=== PATIENT | female | born 1945 | race Caucasian/White ===

== ENCOUNTER → 2017-04-17 | Outpatient (CLI) | payer BC ==
--- NOTE | 2017-04-17 14:10 | MAMMOGRAPHY REPORT ---
BILATERAL DIGITAL SCREENING MAMMOGRAM WITH CAD: 04/17/2017 CLINICAL HISTORY: Routine screening. Patient has no complaints. TECHNIQUE: Bilateral CC and MLO views were obtained. Current study was also evaluated with a Comput er Aided Detection (CAD) system. COMPARISON: Comparison is made to exams dated: 03/30/2016 mammogram, 09/27/2015 ultrasound, 5 mammogram, 01/19/2014 mammogram, 01/15/2013 mammogram, and 01/14/2012 mammogram - [facility]. BREAST COMPOSITION: There are scattered areas of fibroglandular density in both breasts. FINDINGS: There are minimal vascular calcifications bilaterally. Stable asymmetry in the superior l eft breast. Scattered benign-appearing rim calcifications. No new suspicious mass, architectural d istortion or cluster of microcalcifications is seen. IMPRESSION: ACR BI-RADS CATEGORY 1: NEGATIVE There is no mammographic evidence of malignancy. A 1 year screening mammogram is recommended. The p atient will receive written notification of the results. Approximately 10% of breast cancers are not detected with mammography. A negative mammographic repor t should not delay biopsy if a clinically suggestive mass is present. Lakeshia Vasquez M.D. ay/:04/17/2017 13:40:59 [employer] Supervisor: Tamie BEAR(N[place])(M), [facility] letter sent: Normal 1/2 BI-RADS Code: ACR BI-RADS Category 1: Negative
== END | disposition home or self-care (01) ==
LOC: C.MAMM 10:40
PROVIDERS: ATTEND Family Medicine
DX: Z12.31 Encounter for screening mammogram for malignant neoplasm of breast (principal)

== ENCOUNTER → 2017-07-18 | Outpatient (CLI) | payer BC | END | disposition home or self-care (01) | LOC: C.LAB 12:38 | PROVIDERS: ATTEND Internal Medicine Endocrinology, Diabetes & Metabolism | DX: E03.9 Hypothyroidism, unspecified (principal) ==

== ENCOUNTER → 2017-09-23 | Outpatient (CLI) | payer BC ==
[2017-09-23 16:26] LABS: THYROID STIMULATING HORMONE 0.521 uIu/ml (0.300-4.500)
== END | disposition home or self-care (01) ==
LOC: C.LAB 13:51
PROVIDERS: ATTEND Internal Medicine Endocrinology, Diabetes & Metabolism
DX: E03.9 Hypothyroidism, unspecified (principal)

== ENCOUNTER → 2018-02-13 | Outpatient (CLI) | payer BC ==
--- NOTE | 2018-02-13 13:16 | DIAGNOSTIC IMAGING REPORT ---
L FOOT MIN 3 VIEWS CLINICAL HISTORY: LEFT FOOT PAIN COMPARISON: None. DISCUSSION: Rather prominent bunion distal aspect first metatarsal. Moderate valgus configuration of the great toe. Mild degenerative change of the metatarsal phalangeal as well as interphalangeal joints. No evidence for fracture or dislocation. There is no evidence for soft tissue swelling. IMPRESSION: Bunion deformity distal first metatarsal associated with a mild hallux valgus configuration. Moderate degenerative change of the interphalangeal as well as metatarsophalangeal joints. No evidence for fracture The above report was generated using voice recognition software. It may contain grammatical, syntax or spelling errors. Electronically signed by: Donn Shaikh M.D. 02/13/2018 1:15 PM Dictated Date/Time: 02/13/2018 1:14 PM
== END | disposition home or self-care (01) ==
LOC: C.RDSM 17:18
PROVIDERS: ATTEND Family Medicine
DX: M79.672 Pain in left foot (principal); M21.612 Bunion of left foot

== ENCOUNTER 2024-04-17 18:50 | Observation (INO) ==
[2024-04-17 19:34] LABS: Basophils # (auto) 0.04 K/uL (0.00-0.20); Basophils % (auto) 0.4 %; Eosinophils # (auto) 0.06 K/uL (0.00-0.50); Eosinophils % (auto) 0.7 %; Hematocrit (blood only) 44.3 % (37.0-47.0); Hemoglobin 15.1 g/dl (12.0-16.0); Immature Granulocytes # (auto) 0.02 K/uL (0.01-0.20); Immature Granulocytes % (auto) 0.2 %; Lymphocytes # (auto) 2.41 K/uL (1.20-3.40); Mean Corpuscular Hemoglobin 30.8 pg (25.0-34.0); Mean Corpuscular Hgb Conc 34.1 g/dL (32.0-36.0); Mean Corpuscular Volume 90.4 fL (80.0-100.0); Mean Platelet Volume 10.7 fL (9.4-12.4); Monocytes # (auto) 0.66 K/uL (0.11-0.59); Monocytes % (auto) 7.4 %; Neutrophils # (auto) 5.74 K/uL (1.40-6.50); Neutrophils % (auto) 64.3 %; Platelet Count 420 K/uL (130-400); RDW Coefficient of Variation 12.5 % (11.5-14.5); RDW Standard Deviation 40.7 fL (36.4-46.3); White Blood Count 8.93 K/ul (4.8-10.8)
[2024-04-17 19:35] LABS: Appearance Urine Clear (Clear); Bacteria Urine Automated None Seen (None Seen); Bilirubin Urine Negative (Negative); Blood Urine Negative (Negative); Cast Urine Automated 0-2 /lpf (0-2); Color Urine Yellow; Glucose Urine UA Negative (Negative); Ketones Urine Negative (Negative); Leukocyte Esterase Urine 3+ (Negative); Nitrite Urine Negative (Negative); Protein Urine Negative (Negative); RBC Urine Automated 0-2 /hpf (0-2); Specific Gravity Urine 1.008 (1.000-1.030); Urobilinogen Urine Negative (Negative); WBC Urine Automated 0-5 /hpf (0-5); pH Urine 8.5 (4.5-7.5)
[2024-04-17 19:51] LABS: Albumin Globulin Ratio 1.5 (0.9-2); Albumin Level 4.6 gm/dl (3.4-5.0); BUN Creatinine Ratio 16.9 (10-20); Bilirubin,Total 1.1 mg/dl (0.2-1.0); Calcium 10.3 mg/dl (8.6-10.3); Creatinine Clr Calc Pharmacy 41.9 ml/min; Est GFR (African American) 72.5 ml/min; Est GFR (Non-African American) 62.5 ml/min; Magnesium 2.2 mg/dl (1.7-2.4); Potassium 3.9 mmol/L (3.5-5.1); Total Protein 7.6 gm/dl (6.0-8.3)
[2024-04-17 20:01] LABS: Partial Thromboplastin Time 27 Seconds (21-31); Prothrombin Time 10.9 Seconds (9.0-12.0)
[2024-04-17 20:07] LABS: Thyroid Stimulating Hormone 1.061 uIu/ml (0.300-4.500)
--- NOTE | 2024-04-17 20:51 | CT Scan Report ---
Exam(s): CT HEAD Without Contrast CT head: No acute intracranial hemorrhage. No midline shift or mass effect. The territorial velarde-white matter differentiation is maintained throughout. Age-related cerebral volume loss. Periventricular and subcortical white matter hypoattenuation, consistent with chronic microangiopathy. Electronically signed by: Shankar Barber MD 04/17/24 20:50 PM
--- NOTE | 2024-04-17 21:17 | Emergency Department Note ---
Impression & Plan Confusion, Dementia, Wandering, Amnesia ED Provider Note NAME: CONSTANTIN PHELPS AGE: 79 SEX: F : 1945 ARRIVES VIA: Walk-In INFORMANT: [Patient][friends] ED PROVIDER(S): [Familia Saeed MD] CHIEF COMPLAINT: Confusion HISTORY OF PRESENT ILLNESS: The patient is a 79-year-old female who is here with family friends. They are concerned about her safety at home. The patient's has dementia and Parkinson's. The patient was found a few days ago wandering. She apparently had become lost. Today, she was found wandering down the center of the road. People saw her petting animals that were not there. She has made comments that there are people in the house that she has not invited. The family/friends are concerned that the patient may be hallucinating. They have noticed increased confusion. Patient denies pain, she does not want to be hospitalized. She does think that she is safe at home taking care of her . There has been no fever, no cough or congestion. No urinary complaints. She does not think she fell today although she is amnestic about a lot of today's events. PMHx/PSHx/Social Hx: See Below PHYSICAL EXAM: GENERAL: Patient is in no acute distress. HEENT: No acute trauma, normocephalic atraumatic, mucous membranes moist, no nasal congestion. NECK: No stridor, no adenopathy, no meningismus, trachea is midline. LUNGS: Clear to auscultation bilaterally, no wheeze, no rhonchi, breath sounds equal. HEART: Without murmurs gallops or rubs, regular rate and rhythm. ABDOMEN: Soft, nontender, no peritonitis. EXTREMITIES: No cyanosis, full range of motion of all the joints without pain or difficulty. NEUROLOGIC: Awake and alert, follows commands, no acute motor or sensory deficits, no focal weakness. SKIN: No jaundice, no diaphoresis. DIFFERENTIAL DIAGNOSIS: Dementia, UTI, dehydration, electrolyte imbalance, intracranial bleeding, liver or renal failure, among others. EMERGENCY DEPARTMENT PROCEDURES: MEDICAL DECISION MAKING: There is no leukocytosis or concerning anemia. The platelet count is slightly elevated. No coagulopathy. No renal failure or significant electrolyte abnormality. There were some subtle liver enzyme elevations. The patient appeared to be in a euthyroid state. ECG shows a normal sinus rhythm, no acute ST elevation. Cardiac enzyme testing x 1 is not consistent with acute cardiac injury. Urinalysis does not show infection. Brain CT shows no acute bleed or mass effect. Chest x-ray does not show mediastinal widening, pneumonia or pneumothorax. On exam, the patient was amnestic of what had happened earlier. She had a hard time explaining exactly what had happened to her today. Patient was brought by family/friends as they were concerned about her ability to be at home. There was concern for her safety at home. They were asking for admission/placement. The patient did not want to stay voluntarily for help. The office of aging was contacted by case management. Patient is going to be admitted to the hospital for potential placement based on her inability to care for herself. There are serious safety concerns at the present. As per those interviewed, her house is in some disarray and there is true worry about her increased confusion and wandering behavior. The patient was ordered for sublingual Ativan for some anxiety. She will be hospitalized with the help of the office of aging. Case management has been involved. The on-call hospitalist was consulted. At this point, no medical reason for her worsening confusion was found, this may be confusion and wandering as result of worsening dementia. Prior/Outside records/notes reviewed: None ECG per my interpretation: Indication was confusion. The ECG shows a normal sinus rhythm with a rate of 80. There is no acute ST elevation. There is a possible old anterior infarct. There is no PVC. QTc is 431. Imaging/x-ray results per my interpretation: Chest x-ray does not show mediastinal widening, pneumonia or pneumothorax. Chronic Medical/Social conditions affecting care: Advanced age. History of dementia. Care/Management discussed with: preschool disability teacher here in the ED. The on-call hospitalist. Level of care consideration(s): After review of the information above and other included data: --I believe the patient requires escalation of care to admission DISPOSITION: Admission with potential placement. Past Med/Surg History Problem List (Updated 04/18/24 @ 01:22 by Familia Saeed MD) Amnesia (Acute) Wandering (Acute) Dementia (Acute) Confusion (Acute) Hypothyroidism Medical History Dementia Lynne's thyroiditis Goiter Social History Smoking Status: Never smoker Preferred Language: Portuguese Feels Safe at Home: Yes Allergies Allergies Allergy/AdvReac Type Severity Reaction Status Date / Time No Known Allergies Allergy Verified 04/17/24 23:56 Home Meds Home Medications Medication Instructions Recorded Confirmed brinzolamide 1 %-brimonidine 0.2 % 1 drp ophthalmic (eye) DIRECTED 04/17/24 04/17/24 eye drops,suspension (Simbrinza) loteprednol etabonate 0.5 % eye 1 drp OPL DIRECTED 04/17/24 04/17/24 drops,suspension (Lotemax) netarsudil 0.02 % eye drops 1 drp ophthalmic (eye) DIRECTED 04/17/24 04/17/24 (Rhopressa) timolol maleate 0.5 % eye drops 1 drp OPB .DAILY@1000 04/17/24 04/17/24 Previous Rx's Medication Instructions Recorded liothyronine 5 mcg tablet 5 mcg PO BID #180 tabs 06/07/23 levothyroxine 75 mcg tablet 75 mcg PO DAILY #90 tabs 03/30/24 Results & Data (ED) Vital Signs Vital Signs - 24 hr 04/17/24 19:02 04/17/24 20:46 04/17/24 23:01 Temperature 36.4 C L Temperature Source Temporal Artery Scan Pulse Rate 81 Pulse Rate [Finger] 80 82 Respiratory Rate 16 17 18 Respiratory Effort / Characteristics Non-Labored Spontaneous Non-Labored Spontaneous Respiratory Depth Normal Normal Respiratory Pattern Regular Blood Pressure 194/99 H Blood Pressure [Right Arm] 187/95 H 175/99 H Blood Pressure Mean 130 Blood Pressure Mean [Right Arm] 125 124 Pulse Oximetry 97 97 96 Oxygen Delivery Method Room Air Room Air Room Air Sepsis Recent Fever Within 48 Hours No Sepsis New/Unexplained Change in Mental Status No Sepsis Action Taken by Nursing No Action Required 04/18/24 00:00 Temperature Temperature Source Pulse Rate Pulse Rate [Finger] Respiratory Rate Respiratory Effort / Characteristics Respiratory Depth Respiratory Pattern Blood Pressure Blood Pressure [Right Arm] Blood Pressure Mean Blood Pressure Mean [Right Arm] Pulse Oximetry 96 Oxygen Delivery Method Room Air Sepsis Recent Fever Within 48 Hours Sepsis New/Unexplained Change in Mental Status Sepsis Action Taken by Assisted Medications Current Medication List: was personally reviewed by me Laboratory Data Attestation: I reviewed the patient's lab results. 04/17/24 19:15 04/17/24 19:15 Lab Results 04/17/24 Range/Units 19:15 WBC 8.93 (4.8-10.8) K/ul RBC 4.90 (4.20-5.40) M/uL Hgb 15.1 (12.0-16.0) g/dl Hct 44.3 (37.0-47.0) % MCV 90.4 (80.0-100.0) fL MCH 30.8 (25.0-34.0) pg MCHC 34.1 (32.0-36.0) g/dL RDW Std Deviation 40.7 (36.4-46.3) fL RDW Coeff of Ronald 12.5 (11.5-14.5) % Plt Count 420 H (130-400) K/uL MPV 10.7 (9.4-12.4) fL Immature Gran % (Auto) 0.2 % Neut % (Auto) 64.3 % Lymph % (Auto) 27.0 % [place] % (Auto) 7.4 % Eos % (Auto) 0.7 % Baso % (Auto) 0.4 % Neut # (Auto) 5.74 (1.40-6.50) K/uL Lymph # (Auto) 2.41 (1.20-3.40) K/uL [place] # (Auto) 0.66 H (0.11-0.59) K/uL Eos # (Auto) 0.06 (0.00-0.50) K/uL Baso # (Auto) 0.04 (0.00-0.20) K/uL Immature Gran # (Auto) 0.02 (0.01-0.20) K/uL PT 10.9 (9.0-12.0) Seconds INR 1.0 (0.9-1.1) APTT 27 (21-31) Seconds PTT Ratio 1.0 Sodium 140 (136-145) mmol/L Potassium 3.9 (3.5-5.1) mmol/L Chloride 104 (98-107) mmol/L Carbon Dioxide 30 (21-32) mmol/L Anion Gap 6 (3-11) BUN 15 (6-23) mg/dl Creatinine 0.89 (0.6-1.2) mg/dl Est Cr Clr Drug Dosing 41.9 ml/min Est GFR ( Amer) 72.5 ml/min Est GFR (Non-Af Amer) 62.5 ml/min BUN/Creatinine Ratio 16.9 (10-20) Glucose 108 H (70-99(Fasting)) mg/dl Calcium 10.3 (8.6-10.3) mg/dl Magnesium 2.2 (1.7-2.4) mg/dl Total Bilirubin 1.1 H (0.2-1.0) mg/dl AST 57 H (13-39) U/L ALT 46 (7-52) U/L Alkaline Phosphatase 77 (34-104) U/L Troponin I High Sens 6.0 (0-14) pg/ml Total Protein 7.6 (6.0-8.3) gm/dl Albumin 4.6 (3.4-5.0) gm/dl Globulin 3.0 (2.5-4.0) gm/dl Albumin/Globulin Ratio 1.5 (0.9-2) TSH 1.061 (0.300-4.500) uIu/ml Urine Color Yellow Urine Appearance Clear (Clear) Urine pH 8.5 H (4.5-7.5) Ur Specific [place] 1.008 (1.000-1.030) Urine Protein Negative (Negative) Urine Glucose (UA) Negative (Negative) Urine Ketones Negative (Negative) Urine Blood Negative (Negative) Urine Nitrite Negative (Negative) Urine Bilirubin Negative (Negative) Urine Urobilinogen Negative (Negative) Ur Leukocyte Esterase 3+ H (Negative) Urine WBC (Auto) 0-5 (0-5) /hpf Urine RBC (Auto) 0-2 (0-2) /hpf U Hyaline Cast (Auto) 0-2 (0-2) /lpf U Epithel Cells (Auto) 3-5 H (0-2) /hpf Urine Bacteria (Auto) None Seen (None Seen) Imaging Data Radiologist's Impression: Head CT 04/17/24 19:23 Exam(s): CT HEAD Without Contrast CT head: No acute intracranial hemorrhage. No midline shift or mass effect. The territorial velarde-white matter differentiation is maintained throughout. Age-related cerebral volume loss. Periventricular and subcortical white matter hypoattenuation, consistent with chronic microangiopathy. Electronically signed by: Shankar Barber MD 04/17/24 20:50 PM Discharge Plan Visit Data Chief Complaint: Confusion Stated Complaint: CONFUSION, WONDERING, DEMENTIA, DIZZY, FELL ED Provider: Familia Saeed Discharge Problem: Confusion, Dementia, Wandering, Amnesia Patient Disposition: Admitted As Inpatient Condition: Fair Forms Stand Alone Forms: My [facility] Prescriptions Prescriptions: No Action liothyronine 5 mcg tablet 5 mcg PO BID Qty: 180 3RF levothyroxine 75 mcg tablet 75 mcg PO DAILY Qty: 90 1RF loteprednol etabonate [Lotemax] 0.5 % drops,suspension 1 drp OPL DIRECTED timolol maleate 0.5 % drops 1 drp OPB .DAILY@1000 Simbrinza 1-0.2 % drops,suspension 1 drp ophthalmic (eye) DIRECTED Rhopressa 0.02 % drops 1 drp ophthalmic (eye) DIRECTED Referrals Referrals: Mario Rodrigez MD [Primary Care Provider] - Discharge Problem: Dementia Qualifiers: Dementia type: unspecified type Dementia severity: moderate Dementia behavioral or psychological symptom: unspecified whether behavioral, psychotic, or mood disturbance or anxiety Qualified Code(s): F03.B0 - Unspecified dementia, moderate, without behavioral disturbance, psychotic disturbance, mood disturbance, and anxiety
[2024-04-18] MEDS: LORazepam 1 MG TAB SL STA (01:27)
--- NOTE | 2024-04-18 02:13 | History & Physical Report ---
Date of Service April 18, 2024 Assessment & Plan (1) Dementia: Plan: - No acute pathology on Head CT - metabolic encephalopathy in the setting in UTI may be contributing, but does not sound like mental status is acutely worse - UDS pending - office of aging involved as concern for safety at home and ability to independently perform ADLs; office of aging will see pt 04/18. Court order was obtained for 72 hour protection (2) Confusion: Plan: As per above (3) Requires assistance with activities of daily living (ADL): Plan: As per above (4) Hypothyroidism: Plan: - continue levothyroxine, liothyronine - TSH= 1.061 - follows with endocrinology (5) UTI (urinary tract infection): Plan: - UA with - memory is poor, so trouble assesing if she is truely symtomtic - plan to start on Bactrim pending culture (6) Glaucoma: Plan: - per friend recent surgery and had appointment 04/17 where timing of eye drops were changed - continue eye drops per [facility] records from 04/02-> should call [facility] in the morning to confirm what changes were made Plan Diet: Regular VTE Prophylaxis: Lovenox Code: Full History of Present Illness Primary Care Provider: Mario Rodrigez MD 79 year old female with a past medical history of dementia, glaucoma, hypothyroidism presenting with concern for altered mental status. This evening she was found by a neighbor walking in the street. Patient's friend, Priya, helps to provide history. Notes slow onset of dementia over the past few years. Got significantly worse over the past year, after her daughter in February 2023. has Parkinson's disease. Friends/Family has concerns that she is no longer safe to be at home. Has been hallucinating and has wandered out of the house and gotten lost twice this week. Per Priya there has not been an acute change in mental status, just gradual decline. Allergies Allergy/AdvReac Type Severity Reaction Status Date / Time No Known Allergies Allergy Verified 04/17/24 23:56 Home Medications Medication Instructions Recorded Confirmed Type liothyronine 5 mcg tablet 5 mcg PO BID #180 tabs 06/07/23 04/17/24 Rx levothyroxine 75 mcg tablet 75 mcg PO DAILY #90 tabs 03/30/24 04/17/24 Rx brinzolamide 1 %-brimonidine 0.2 % 1 drp ophthalmic (eye) DIRECTED 04/17/24 04/17/24 History eye drops,suspension (Simbrinza) loteprednol etabonate 0.5 % eye 1 drp OPL DIRECTED 04/17/24 04/17/24 History drops,suspension (Lotemax) netarsudil 0.02 % eye drops 1 drp ophthalmic (eye) DIRECTED 04/17/24 04/17/24 History (Rhopressa) timolol maleate 0.5 % eye drops 1 drp OPB .DAILY@1000 04/17/24 04/17/24 History Past Med/Surg History Problem List (Updated 04/18/24 @ 02:24 by Dania Naqvi DO) Glaucoma UTI (urinary tract infection) Requires assistance with activities of daily living (ADL) Amnesia (Acute) Wandering (Acute) Dementia (Acute) Confusion (Acute) Hypothyroidism Medical History Dementia Lynne's thyroiditis Goiter Social History Smoking Status: Never smoker Preferred Language: Pashto Communication Ability: Effective Agile Java 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 Required: No Current Living Situation: Spouse Feels Safe at Home: Yes Assistive Devices: None Assistive Devices Comment: reading glasses Review of Systems Review of Systems: As per above Physical Exam Physical Exam: Constitutional: well-appearing, no acute distress HEENT: NCAT, no conjunctival injection CV: regular rhythm, no murmur appreciated, extremities well-perfused, no LE edema Resp: CTABL, no wheezes/rales/rhonchi appreciated, no increased work of breathing MSK: no gross deformities appreciated Skin: warm, dry, no rash appreciated Neuro: alert, oriented to person and place, no focal neurologic deficit appreci ated Results & Data Results & Data Vital Signs (Past 12 Hours) Vital Signs Temp Pulse Pulse Resp BP BP Pulse Ox 04/18/24 00:00 96 04/17/24 23:01 82 18 175/99 H 96 04/17/24 20:46 80 17 187/95 H 97 04/17/24 19:02 36.4 C L 81 16 194/99 H 97 O2 Del Method 04/18/24 00:00 Room Air 04/17/24 23:01 Room Air 04/17/24 20:46 Room Air 04/17/24 19:02 Room Air Supervising Physician Co-Signing Physician Notes Attending addendum: I have physically seen this patient, have supervised the medical residents activities, and agree with the H&P unless as otherwise noted. Assessment and Plan: Confusion- Underlying dementia, with possible aggravation due to metabolic encephalopathy associated with a present UTI Office of Aging with 72-hour admission due to behavior noted earlier this evening regarding patient's safety Unclear how much of the process may be related to progressive dementia, may not know until UTI is completely treated Maintain one-to-one for now Will need PT/OT assessment Patient presently in need of help with ADLs Urinary tract infection- UA suggestive of UTI Follow urine culture sensitivity Empiric oral Bactrim, as patient has pulled out her IV and would not except another IV to be placed Glaucoma- Exact timing and frequency of drops to be determined in the a.m. Resident Activity Tracking Resident Involvement: Resident Care Provided Care Provided: Adult Hospital Medicine (1) Dementia Dementia behavioral or psychological symptom: unspecified whether behavioral, psychotic, or mood disturbance or anxiety Dementia severity: moderate Dementia type: unspecified type Qualified Code(s): F03.B0 - Unspecified dementia, moderate, without behavioral disturbance, psychotic disturbance, mood disturbance, and anxiety
[2024-04-18 03:06] LABS: Amphetamines+Metham, Urine Neg (Neg); Barbiturates, Urine Neg (Neg); Benzodiazepine, Urine Neg (Neg); Cocaine, Urine Neg (Neg); Fentanyl, Urine Neg (Neg); MDMA (Ecstacy), Urine Neg (Neg); Marijuana, Urine Neg (Neg); Methadone, Urine Neg (Neg); Opiate, Urine Neg (Neg); Phencyclidine, Urine Neg (Neg)
[2024-04-18] MEDS: LEVOTHYROXINE SODIUM 75 MCG TABLET PO SCH (06:31)
--- NOTE | 2024-04-18 06:58 | Hospitalist Progress Note ---
Date of Service April 18, 2024 Assessment & Plan (1) Dementia: Plan: - Patient found wondering outside on road prior to coming in. - No acute pathology on Head CT - metabolic encephalopathy in the setting in UTI may be contributing, but does not sound like mental status is acutely worse - Otherwise blood work unremarkable. - UDS negative. - office of aging involved as concern for safety at home and ability to independently perform ADLs; office of aging will see pt 04/18. Court order was obtained for 72 hour protection (2) Confusion: Plan: As per above (3) Requires assistance with activities of daily living (ADL): Plan: As per above (4) Hypothyroidism: Plan: - continue levothyroxine, liothyronine - TSH= 1.061 - follows with endocrinology (5) UTI (urinary tract infection): Plan: - UA with - memory is poor, so trouble assesing if she is truely symtomtic - plan to start on Bactrim pending culture (6) Glaucoma: Plan: - Per [facility], patient is currently on Timolol eye drops BID, Lotemax TID, Rhopressa daily, and Simbrinza QID. - Only available formulations of the above are Timolol and Simbrinza, however spoke to patient's friend, Priya who is involved in care and she will be bringing some clothes as well as her eye drop prescriptions over today. Plan Diet: Regular VTE Prophylaxis: Lovenox 40mg Code: Full Dispo: Case management discussed with patient's (who is unable to care for her as well now due to Parkinson's) and friend Priya - referral was faxed to [facility] and after I spoke with friend Priya they will have a meeting with [facility] on Saturday. Admission and Anticipated Discharge Date Admission Date: April 18, 2024 Supervising Physician Co-Signing Physician Notes Attending Physician Supervision Note: I independently interviewed and examined the patient and verified the anderson history and physical, reviewed labs and image studies and agree with findings and care plan noted above. Confusion in setting of dementia needing help with ADL - probable UTI - bactrim. supportive care. office of aging involvement for safety. Recent glaucoma surgery - continue home eye drops Subjective Patient seen at the bedside without any physical complaint. She states that she was told she would be talking to people who would help her with her situation at home with having to deal with a lot of things. Review of Systems Review of Systems: As per above Physical Exam Constitutional: WD/WN, vitals as above Eyes: PERRL, conjunctivae normal, anicteric sclerae Respiratory: normal respiratory effort, lungs clear to auscultation Cardiovascular: RRR, no murmur, no edema Gastrointestinal (Abdomen): normal bowel sounds, soft, nontender, no hepatosplenomegaly Psychiatric: Patient oriented to name, stated she was "probably at [facility]" when asked, and knows it's spring. Results & Data Results & Data Vital Signs (Past 12 Hours) Vital Signs Temp Pulse Pulse Resp BP BP Pulse Ox 04/18/24 04:28 36.3 C L 77 16 145/89 H 97 04/18/24 03:19 76 16 96 04/18/24 02:33 78 16 96 04/18/24 02:31 78 16 96 04/18/24 00:00 96 04/17/24 23:01 82 18 175/99 H 96 04/17/24 20:46 80 17 187/95 H 97 04/17/24 19:02 36.4 C L 81 16 194/99 H 97 O2 Del Method 04/18/24 04:28 Room Air 04/18/24 03:19 Room Air 04/18/24 02:33 Room Air 04/18/24 02:31 Room Air 04/18/24 00:00 Room Air 04/17/24 23:01 Room Air 04/17/24 20:46 Room Air 04/17/24 19:02 Room Air Resident Activity Tracking Resident Involvement: Resident Care Provided Care Provided: Adult Hospital Medicine (1) Dementia Dementia behavioral or psychological symptom: unspecified whether behavioral, psychotic, or mood disturbance or anxiety Dementia severity: moderate Dementia type: unspecified type Qualified Code(s): F03.B0 - Unspecified dementia, moderate, without behavioral disturbance, psychotic disturbance, mood disturbance, and anxiety
[2024-04-18] MEDS: LOTEMAX~ORDER AWAITING ACTION SCH (07:16)
--- NOTE | 2024-04-18 08:12 | XRay Report ---
XR chest 1V not portable HISTORY: Weakness COMPARISON: None. FINDINGS: The lungs are clear. Cardiac silhouette is normal in size. No pleural effusions. No pneumot horax. IMPRESSION: No acute process. ACT 112: Negative or not required by law. Electronically signed by: Bradley Yun M.D. 04/18/2024 8:10 AM
[2024-04-18] MEDS: SULFAMETHOXAZOLE/TRIMETHOPRIM DS 800/160MG TAB PO SCH (08:37)
[2024-04-18] MEDS: LIOTHYRONINE SODIUM 5 MCG TAB PO SCH (08:37)
[2024-04-18] MEDS: TIMOLOL MALEATE 0.5% OP SOLN 5 ML BTL OP SCH (08:37)
[2024-04-18] MEDS: ENOXAPARIN INJ 40 MG/0.4 ML SYR SQ SCH (12:10)
[2024-04-18] MEDS: BRINZOLAMIDE (AZOPT) OPS 10 ML BTL OP SCH (13:08)
[2024-04-18] MEDS: BRIMONIDINE TARTRATE 0.2% 5ML OP SCH (13:08)
[2024-04-18] MEDS: LORazepam 0.5 MG TAB PO STA (15:31)
[2024-04-18] MEDS ORDERED: Nursing to Pharmacy Communication SCH (17:00)
[2024-04-18] MEDS: NETARSUDIL MESYLATE 37 DROPS/2.5 ML BTL OPR SCH (19:35)
[2024-04-18] MEDS: prednisoLONE acetate 1% OP SUSP 5 ML BTL OPL SCH (19:35)
--- NOTE | 2024-04-18 19:44 | Billing Data ---
Date of Service April 18, 2024 Coding Level of Care Code 94699 INT INP/OBS CARE
[2024-04-18] MEDS ORDERED: prednisoLONE acetate 1% OP SUSP 5 ML BTL OPL SCH (20:00)
--- OUTSIDE RECORDS SUMMARY | 2024-04-18 20:01 | External Medical Summary | Continuity of Care Document ---
Author Name Unknown Organization [facility] [id number] [place] [phone] Care Team Providers Care Waxer Floor Name Role Phone RainClover stantonan Primary Care Physician [phone] Encounter [facility] [id number] Date(s): 04/01/24 - 04/01/24 [facility] [address] Medical [facility] [address] [address] [place] [phone] Encounter Diagnosis Severe dementia(Discharge Diagnosis) - 04/01/24 Glaucoma(Discharge Diagnosis) - 04/01/24 Hyperlipemia(Discharge Diagnosis) - 04/01/24 Pre-op exam(Discharge Diagnosis) - 04/01/24 Body mass index [BMI] 22.0-22.9, adult(Discharge Diagnosis) - 04/01/24 UNSPECIFIED HYPOTHYROIDISM(Discharge Diagnosis) - 04/01/24 Thrombocytosis(Discharge Diagnosis) - 04/01/24 Discharge Disposition: Home or Self Care Attending Physician: DO Oliva Allison B Allergies, Adverse Reactions, Alerts Substance Criticality Severity Reaction Reaction Severity Status sulfADIAZINE rash Active Fosamax 1 Active 1stomach upset Assessment and Plan Extracted from: Title:Office Visit Note Author:Osbaldo Garza MD, [facility] Date:04/01/24 1.Severe dementia Controlled Live with 2.Glaucoma 3.Hyperlipemia Chronic condition, stable Goal:_ Data:_ _ Plan: _Lipid panel ordered Follow up in 1 month 4.Pre-op exam Mercedes is seen for uche-operative risk stratification. They report no cardiac symptoms at rest or on exertion. They have no history of ischemic heart disease, CHF, CVD, diabetes, EtOH/drug abuse, recent anticoagulant or antithrombotic use, personal or family history of coagulopathy, or CKD. They report no history of undergoing a stress test, cardiac catheterization, or coronary revascularization) They report being able to achieve4-10METs of activity during. According to the RCRI, this number of risk factors stratifies the patient to ClassI, whihc carries with it a0.4% risk of major CV complications, such as TX, CHF, or malignant arrhythmia (Circulation 1999; 100:1043). In this case, however, the RCRI likelyover-estimatesthe patient's true cardiac risk and due to the fact that this surgery is considered alowrisk. These risks, along with the risk of uche- operative stroke, were discussed with the patient, in light of the benefits of possible surgerySarha to proceed with the operation. This assessment was conveyed to the surgery and anesthesia teams. 5.UNSPECIFIED HYPOTHYROIDISM Chronic condition, stable Goal:Resolution Data:_ _ Plan: _She follow upwith Garbage Collector Supervisor 6.Thrombocytosis Chronic condition, stable Goal:_ Data:_ _ Plan: _ Lab will be reordered Stable for surgery Immunizations Given and Recorded Vaccine Date Status Refusal Reason RSV vaccine preF3, recombinant 10/21/23 Recorded zoster vaccine, inactivated 08/20/22 Recorded zoster vaccine, inactivated 1 06/28/22 Recorded zoster vaccine, inactivated 06/18/22 Recorded SARS-CoV-2 (COVID-19) mRNA BNT-162b2 vax 09/20/21 Given SARS-CoV-2 (COVID-19) mRNA BNT-162b2 vax 2 12/24/20 Recorded tetanus/diphtheria/pertuss, acel (Tdap) 05/30/20 G iven tetanus/diphtheria/pertuss, acel (Tdap) 04/28/08 R ecorded pneumococcal 23-valent vaccine 12/03/16 Given pneumococcal 13-valent vaccine 08/26/15 Given zoster vaccine live 05/05/15 Recorded 1Result Comment: #1 2Result Comment: 2022-07-02: Historical information-source unspecified Medications calcium acetate 667 mg oral tablet Start: 05/30/20 11:23:00 AM EDT, See Instructions, 600-700mg daily Start Date: 05/30/20 Status: Ordered liothyronine 5 mcg oral tablet Start: 09/12/22 7:27:00 AM EDT, 2 tab, PO, Daily Start Date: 09/12/22 Status: Ordered Simbrinza 1%- 0.2% ophthalmic suspension Start: 03/07/22 11:48:00 AM EDT, 1 drop, both eyes, tid Start Date: 03/07/22 Status: Ordered Synthroid 50 mcg (0.05 mg) oral tablet Start: 03/09/21 1:46:00 PM EDT, See Instructions, I tablet daily Saturday through Saturday. Start Date: 03/09/21 Status: Ordered timolol hemihydrate 0.25% ophthalmic solution Start: 10/17/23 8:54:00 AM EST, 1 drop, both eyes, tid Start Date: 10/17/23 Status: Ordered Vital-D Start: 11/23/21 12:12:00 PM EST, See Instructions, 50,000IU po monthly Start Date: 11/23/21 Status: Ordered Mental Status 04/01/24 Barriers to Learning one year None evide nt Mandatory Health Literacy Documentation Yes Health Literacy Communication Barriers N ever Primary Language Yi Problem List Condition Confirmation Course Effective Dates Status H ealth Status Informant Vitamin D deficiency Confirmed Active Depression Confirmed Active Hyperlipemia Confirmed Active Fibrocystic breast Confirmed Active Glaucoma Confirmed Active Lynne's thyroiditis Confirmed Active Left knee DJD Confirmed Active Osteoporosis 1 Confirmed 03/01/21 Active Right knee pain Confirmed Active Thrombocytosis Confirmed Active UNSPECIFIED HYPOTHYROIDISM 2 Confirmed 01/24/11 Active Uterine fibroids Confirmed Active 08:19 EDT - [place], 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 Valdes Diagnosis Diagnosis Type Effective Dates Health Status Clinical Service Informant Glaucoma Discharge Diagnosis 04/01/24 Non-Specified Hyperlipemia Discharge Diagnosis 04/01/24 Non-Specified Severe dementia Discharge Diagnosis 04/01/24 Non-Specified Pre-op exam Discharge Diagnosis 04/01/24 Non-Specified Body mass index [BMI] 22.0-22.9, adult Discharge Diagnosis 04/01/24 Non-Specified UNSPECIFIED HYPOTHYROIDISM Discharge Diagnosis 04/01/24 Non-Specified Thrombocytosis Discharge Diagnosis 04/01/24 Non-Specified Procedures Procedure Date Related Diagnosis Body Site Status Mammogram 1 01/24/23 Completed Mammogram - screening 2 11/22/21 C ompleted Bone density finding 3 02/23/21 Co mpleted Mammogram - screening 4 11/01/20 C ompleted X-ray of both knees 5 05/07/18 Com pleted Mammogram - screening 6 05/06/18 C ompleted Foot X-ray 7 02/13/18 Completed Mammogram - screening 8 04/17/17 C ompleted Surgery 2016 Completed Mammogram - screening 10 03/30/16 Completed Mammogram, right diagnostic with CAD and targeted right US 11 09/27/15 Complet ed Mammogram in compression view 12, 13 03/24/15 Completed Mammogram 14 03/15/15 Completed Colonoscopy 15 02/24/14 Completed Colonoscopy 2001 Completed Tonsillectomy 1950 Completed Laser surgery L. eye for eye pressure Completed Left Breast BX - Benign Lump Completed Left Knee Scope Completed 1IMPRESSION: ACR BI- RADS CATEGORY 2: BENIGN There is no mammographic evidence of malignancy. A 1 year screening mammogram is recommended (01-25-2024). The patient will receive written notification of the results. 2There is no mammographic evidence of malignancy. A 1 year screening mammogram is recommended. The patient will receive written notification of the results. 3Osteoporosis -3.3 Dual femur -2.1 10-year probability of fracture: Major osteoporotic 16.2% Hip 5.5% Population [place] 4There is no mammographic evidence of malignancy. A j1 year screening mammogram is recommnded. The patient will receive written notification of the results. 5Osteopenia and mild degenerative changes. No acute osseous abnormality is seen in the right knee 6Impression: There is no mammographic evidence of malignancy. A 1 year screening mammogram is recommended. The patient will receive written notification of the results. 7Bunion deformity distal first metatarsal associated with a mild hallux valgus configuration. Moderate degenerative changeo f the interphalangeal as wel as metatarsophalangeal joints. no evidence for fracture. 8There is no mammographic evidence of malignancy. A 1 year screening mammogram is recommended. The patient will receive written notification of the results. 9eye surgery "both eyes" 10Impression: There is no mammographic evidence of malignancy. A 1 year screening mammogram is recommended. The patient will receive written notification of the results. 11Benign, targeted US ACR BI-RADS CATEGORY 2: BENIGN The mammographic mass in the right breast corresponds with a benign 7 mm cyst cluster in the right breast at 1:00 on US. 12Right dianostic mammogram and targeted right ultrasound 13impression: Persistent partially circumscribed nodular asymmetry in the medical right breast, without sonographic correlate. Given that no discrete abnormal was seen on ultrasound, this could possibly represent an intramammary lumph node that is isoechoic. Nevertheless, given the benign mammographic features, a short interval follow-up right mammogram with repeat ultrasound in the 1:00, 2:00 and #:00 axes is recommended to ensure stability. these results and recommendations were discussed with the patient at the time of the exam. 14The increasingly conspicuous 5mm focal asymmetry in the right breast needs additional evaluation. The PT will be called to schedule an appt. : normal [id number] Vital Signs Most recent to oldest [Reference Range]: 1 Height 157 cm (04/01/24 10:05 AM) Patient Weight 54.8 kg (04/01/24 10:05 AM) Body Mass Index 22.23 kg/m2 (04/01/24 10:05 AM) Heart Rate 75 bpm (04/01/24 10:05 AM) Respiratory Rate 18 br/min (04/01/24 10:05 AM) Blood Pressure 126/82mmHg (04/01/24 10:05 AM) Cuff Pulse Pressure 44 mmHg (04/01/24 10:05 AM) Social History Social History Type Response Smoking Status Never smoked cigaret kaitlin Sex Female FCM Outpt Note * MD Ulloa Christopher: MODIFY MD Ulloa Christopher: MODIFY Event Display: FCM Outpt Note Authored Date: [id number] Chief Complaint preop clearance History of Present Illness 78 y/o female with PMH of severe glaucoma, severe dementia, Lynne's thyroiditis, thrombocytosis, depression here for pre op for Cataract Surgery Preoperative evaluation Requested by: Dr. Restrepo Planned surgery: [_] high risk (aortic, peripheral vascular) [_] intermediate risk (intraperitoneal, intrathoracic, CEA, head and neck, orthopedic, prostate) [_x] low risk (endoscopic or superficial procedures, cataract surgery, breast surgery, ambulatory procedures) Planned anesthesia: [place] anesthesia Exercise tolerance 1 MET: resting oxygen consumption 4 METs: x Climbing flight of stairs x Walking up a hill x Walking on level ground at 4 mph x Heavy house work < 4 METs: Slow ballroom dancing Golfing with a cart Playing musical instrument Walking slower than 4 mph Bleeding tendency: none Substance use: none Prior anesthesia: Cataracts Revised Cardiac Risk Index: Score [0] [_] High Risk Surgery [_] Ischemic Heart Disease [_] History of CHF [_] History of cerebrovascular disease [_] Insulin therapy for DM [_] Pre-op Cr >2 Physical Exam Vitals & Measurements HR:75(Monitored) RR:18 BP:126/82 SpO2:98% HT:157cm WT:54.8kg WT:54.800kg(Dosing) BMI:22.23 PHQ2 Data(Data Documented on:04/01/2024 10:04) Emotional health assessment NEGATIVE General: _Alert and oriented, No acute distress HEENT: _ Normocephalic, TM clear, Nl gross hearing, moist oral mucosa _ Cardiovascular: _Normal rate, Regular rhythm, No murmur, No gallop. Respiratory: _Lungs are clear to auscultation, Respirations are non-labored, Breath sounds are equal Gastrointestinal: _Soft, Non-tender, Non-distended, Normal bowel sounds. Musculoskeletal: _Normal range of motion,normal strength. Neurologic:Normal sensory, Normal motor function, CN II-XII grossly intact. Integumentary: _Warm, Dry, [place]. Psych: Mood-affect congruence. Reports no SI/HI. Speech is of normal pace and content Assessment/Plan 1.Severe dementia Controlled Live with 2.Glaucoma 3.Hyperlipemia Chronic condition, stable Goal:_ Data:_ _ Plan: _Lipid panel ordered Follow up in 1 month 4.Pre-op exam Mercedes is seen for uche-operative risk stratification. They report no cardiac symptoms at rest or on exertion. They have no history of ischemic heart disease, CHF, CVD, diabetes, EtOH/drug abuse, recent anticoagulant or antithrombotic use, personal or family history of coagulopathy, or CKD. They report no history of undergoing a stress test, cardiac catheterization, or coronary revascularization)They report being able to achieve4-10METs of activity during. According to the RCRI, this number of risk factors stratifies the patient to ClassI, whihc carries with it a0.4% risk of major CV complications, such as TX, CHF, or malignant arrhythmia (Circulation 1999; 100:1043). In this case,however, the RCRI likelyover-estimatesthe patient's true cardiac risk and due to the fact that this surgery is considered alowrisk. These risks, along with the risk of uche-operative stroke, were discussed with the patient, in light of the benefits of possible surgerySarah to proceed with the operation. This assessment was conveyed to the surgery and anesthesia teams. 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 Roblero, agree with history and physical as documented above. Plan reviewed in detail. Any corrections or additions are noted here - preoperative evaluation and risk stratification as noted above. Problem List/Past Medical History Ongoing Depression Fibrocystic breast Glaucoma Lynne's thyroiditis Hyperlipemia Left knee DJD Osteoporosis Right knee pain Spinal stenosis NOS| Status: Inactive Thrombocytosis UNSPECIFIED HYPOTHYROIDISM Uterine fibroids Vitamin D deficiency Resolved Post menopausal syndrome Procedure/Surgical History Mammogram| Service Date: 01/24/2023Mammogram - screening| Service Date: 11/22/2021one density finding| Service Date: 02/23/2021Mammogram - screening| Service Date: 11/01/2020X-ray of both knees| Service Date: 05/07/2018Mammogram - screening| Service Date: 05/06/2018Foot X-ray| Service Date: 02/13/2018Mammogram - screening| Service Date: 04/17/2017Surgery| Service Date:2016Mammogram - screening| Service Date: 03/30/2016Mammogram, right diagnostic with CAD and targeted right US| Service Date: 09/27/2015Mammogram in compression view| Service Date: 03/24/2015 Mammogram| Service Date: 03/15/2015Colonoscopy| Service Date: 02/24/2014Colonoscopy| Service Date: 2001Tonsillectomy| Service Date: Knee ScopeLeft Breast BX - Benign LumpLaser surgery L. eye for eye pressure Medications brimonidine-brinzolamide ophthalmic(Simbrinza 1%- 0.2% ophthalmic suspension), 1 drop, both eyes, tid calcium acetate(calcium acetate 667 mg oral tablet), See Instructions levothyroxine(Synthroid 50 mcg (0.05 mg) oral tablet), See Instructions liothyronine(liothyronine 5 mcg oral tablet), 10 mcg= 2 tab, PO, Daily multivitamin with minerals(Vital-D), See Instructions timolol ophthalmic(timolol hemihydrate 0.25% ophthalmic solution), 1 drop, both eyes, tid Allergies Fosamax sulfADIAZINErash Social History Smoking Status Never smoked cigarettes Alcohol - Low Risk Exercise - Regular exercise Exercise type:Walking - Comments: curves Tobacco - Denies Tobacco Use Family History Arthritis: Mother and Sister. Cardiovascular disease: Mother. Cirrhosis.: Father. Diabetes: Father. Gall bladder disease: Father. Heart disease: Mother. High Blood Pressure: Sister. Lung cancer..: Mother. Thyroid disease: Mother. Health Status Family Member(s) Immunizations Vaccine Date Status RSV vaccine preF3, recombinant 10/21/2023 Recorded zoster vaccine, inactivated 08/20/2022 Recorded zoster vaccine, inactivated 06/28/2022 Recorded Comments : #1 zoster vaccine, inactivated 06/18/2022 Recorded SARS-CoV-2 (COVID-19) mRNA BNT-162b2 vax 09/20/2021 Given SARS-CoV-2 (COVID-19) mRNA BNT-162b2 vax 12/24/2020 Recorded Comments : 2022-07-02: Historical information-source unspecified tetanus/diphtheria/pertuss, acel (Tdap) 05/30/2020 Given pneumococcal 23-valent vaccine 12/03/2016 Given pneumococcal 13-valent vaccine 08/26/2015 Given zoster vaccine live 05/05/2015 Recorded tetanus/diphtheria/pertuss, acel (Tdap) 04/28/2008 Recorded Recommendations Health Maintenance Pending(in the next year) OverDue Adult Influenza Vaccine due05/17/23and every 1year Medicare Annual Wellness Visit due05/24/23and every 1year Due Adult COVID-19 Vaccination due04/01/24Unknown Frequency Adult Social Determinants of Health Screening due04/01/24Unknown Frequency Satisfied(in the past 1 year) Satisfied Body Mass Index on04/01/24.Satisfied by DARIAN Shepard Kyla Electronic Signature on File Electronically Reviewed/Signed by: Turner Garza MD Author Signature Dt/Tm:04/01/2024 10:44 AM Resident Department of Family Medicine Electronically Reviewed/Signed by: Juliano Ulloa MD Cosigner Signature Dt/Tm: 04/02/2024 05:08PM Department of Family Medicine CR Patient Care team information Care Team Personnel Name: MD Rodrigez Juan Position: Physician - Family Med Member Role: Primary Care Provider Address: Address: [address] [place] [id number] [place] Name: Osbaldo Garza MD, Turner Position: Resident Member Role: Lifetime Relationship Address: Address: [address] [facility] [address] [place] [address] [place] Name: MD Aiyana, Charly Christopher Position: Physician - Derm Member Role: Lifetime Relationship Address: Address: [address] [place] [address] [address] [place] [address] Care Team Related Persons Name: LESTER PHELPS Address: home [address] [place] [address] [place] [phone] Name: LESTER PHELPS Name: LESLEE LUCIANO Address: home [address] [place] [address], [place] [id number]
[2024-04-18] MEDS ORDERED: TIMOLOL MALEATE 0.5% OP SOLN 5 ML BTL OP SCH (21:00)
[2024-04-19] MEDS: ACETAMINOPHEN 325 MG TAB PO PRN (00:32)
[2024-04-19] MEDS: MELATONIN 3 MG TAB PO PRN (00:32)
--- NOTE | 2024-04-19 07:26 | Hospitalist Progress Note ---
"Date of Service April 19, 2024 Assessment & Plan (1) Dementia: Plan: Mercedes is a 79F w/ PMH of glaucoma, dementia, and hypothyroidism who presented to the hospital after being found wandering outdoors at night. Dementia | Confusion - Patient found wandering outside prior to arrival - No acute pathology on Head CT - No evidence of metabolic encephalopathy - Labs unremarkable, UDS negative - Office of aging involved 04/[address] to evaluated patient Court order obtained for 72 hour protection hold Asymptomatic Bacteriuria - Abnormal urinalysis w/ negative culture - Patient remains asymptomatic - Discontinue Bactrim Chronic Conditions - Hypothyroidism: Continue Levothyroxine, TSH stable, follows outpatient with Endocrinology - Glaucoma: continue home medications (2) Confusion: (3) Requires assistance with activities of daily living (ADL): (4) Hypothyroidism: (5) UTI (urinary tract infection): (6) Glaucoma: Plan Diet: Regular VTE Prophylaxis: Lovenox 40mg Code: Full Dispo: CM Following, referral to [facility] (meeting Saturday), no longer able to care for patient at home d/t his own health Admission and Anticipated Discharge Date Admission Date: April 18, 2024 Supervising Physician Co-Signing Physician Notes Attending Physician Supervision Note: I independently interviewed and examined the patient and verified the anderson history and physical, reviewed labs and image studies and agree with findings and care plan noted above. Subjective 04/19: Mercedes was seen at bedside this morning. No acute concerns. Patient notes she is becoming home sick and is looking forward to transitioning home. She is uncertain of the circumstances of her admission at this time. Physical Exam Physical Exam: Constitutional: well-appearing, no acute distress HEENT: NCAT, no conjunctival injection CV: RRR, normal S1/S2, no MRG Resp: non-labored, no wheezing/rhonchi/rales, CTAB MSK: no gross deformities appreciated Skin: warm, dry, no rash appreciated Neuro: alert, AO x 2 (unaware of situation) Results & Data Results & Data Vital Signs (Past 12 Hours) Vital Signs Temp Pulse Resp BP Pulse Ox O2 Del Method 04/18/24 20:12 36.3 C L 73 19 139/90 99 Room Air 04/18/24 19:46 Room Air Resident Activity Tracking Resident Involvement: Resident Care Provided Care Provided: Adult Hospital Medicine (1) Dementia Dementia behavioral or psychological symptom: unspecified whether behavioral, psychotic, or mood disturbance or anxiety Dementia severity: moderate Dementia type: unspecified type Qualified Code(s): F03.B0 - Unspecified dementia, moderate, without behavioral disturbance, psychotic disturbance, mood disturbance, and anxiety"
[2024-04-19] MEDS: BRINZOLAMIDE/BRIMONIDINE TART 119 DROPS/8 ML BTL OPR SCH (07:45)
[2024-04-19] MEDS: TIMOLOL MALEATE 0.5% OP SOLN 5 ML BTL OPR SCH (07:46)
[2024-04-19] MEDS ORDERED: TIMOLOL MALEATE 0.5% OP SOLN 5 ML BTL OPR SCH (08:00)
[2024-04-19] MEDS: LORazepam 0.5 MG TAB PO STA (14:10)
--- NOTE | 2024-04-19 19:02 | Electrocardiogram Report ---
Test Reason : Blood Pressure : / mmHG Vent. Rate : 080 BPM Atrial Rate : 080 BPM P-R Int : 162 ms QRS Dur : 078 ms QT Int : 374 ms P-R-T Axes : 065 -51 040 degrees QTc Int : 431 ms Normal sinus rhythm Left axis deviation Poor R wave progression, consider anterior [place] vs. lead placement vs. LVH Abnormal ECG No previous ECGs available Confirmed by Fausto Buitrago ([id number]) on 04/19/2024 7:02:32 PM Referred By: REFERRED SELF Confirmed By:Fausto Buitrago
[2024-04-19] MEDS ORDERED: LORazepam 0.5 MG in SYRINGE 0.25 ML IV ONE (23:00)
[2024-04-19] MEDS: LORazepam 1 MG TAB SL STA (23:05)
--- NOTE | 2024-04-20 08:06 | Hospitalist Progress Note ---
"Date of Service April 20, 2024 Assessment & Plan (1) Dementia: Plan: Mercedes is a 79F w/ PMH of glaucoma, dementia, and hypothyroidism who presented to the hospital after being found wandering outdoors at night. Dementia | Confusion - Patient found wandering outside prior to arrival - No acute pathology on Head CT - No evidence of metabolic encephalopathy - Labs unremarkable, UDS negative - Office of aging involved 04/18 Scheduled to evaluated patient Court order obtained for 72 hour protection hold Meeting with [facility] on 04/20. Asymptomatic Bacteriuria - Abnormal urinalysis w/ negative culture - Patient remains asymptomatic - Discontinue Bactrim Chronic Conditions - Hypothyroidism: Continue Levothyroxine, TSH stable, follows outpatient with Endocrinology - Glaucoma: continue home medications (2) Confusion: (3) Requires assistance with activities of daily living (ADL): (4) Hypothyroidism: (5) UTI (urinary tract infection): (6) Glaucoma: Plan Diet: Regular VTE Prophylaxis: Lovenox 40mg Code: Full Dispo: CM Following, referral to [facility] (meeting on 04/20), no longer able to care for patient at home d/t his own health Admission and Anticipated Discharge Date Admission Date: April 18, 2024 Supervising Physician Co-Signing Physician Notes I personally examined the patient and verified all anderson points of history and exam, discussed case, and agree with decision making with Dr Rosemary demarco HPI review of systems obtainable from patient. Discussed with family extensively. Vitals noted, in general she is awake but disoriented pleasant does not appear to be in distress. Breathing unlabored no accessory muscle use good effort. Skin without rashes pallor or icterus. Neuro without focal deficits. Dementia/unsafe at homeextensive discussion with and family in regards to med managementand how unfortunately at such as severe state typical dementia medications would really be of no real benefit and possible harm (nausea but she may not be able to voice any GI distress, and therefore it would just appear as a failure to thrive picture), also discussed the role of antipsychotics if necessary and quelling dysphoric behavior ( had asked)and discussed how this also serves a fairly limited role in niche circumstances only. Discussed distraction and redirection techniques as well. Otherwise as above. Working on personal care. Subjective Patient was seen bedside this morning. She was working with PT and doing well. No issues or concerns. Review of Systems Review of Systems: All systems reviewed & are unremarkable except as noted in Subjective Physical Exam Physical Exam: Constitutional: well-appearing, no acute distress HEENT: NCAT, no conjunctival injection CV: RRR, normal S1/S2, no MRG Resp: non-labored, no wheezing/rhonchi/rales, CTAB MSK: no gross deformities appreciated Skin: warm, dry, no rash appreciated Neuro: alert, AO x 2 Results & Data Results & Data Vital Signs (Past 12 Hours) Vital Signs Temp Pulse Resp BP Pulse Ox O2 Del Method 04/20/24 07:08 36.8 C 77 16 152/81 H 96 Room Air (1) Dementia Dementia behavioral or psychological symptom: unspecified whether behavioral, psychotic, or mood disturbance or anxiety Dementia severity: moderate Dementia type: unspecified type Qualified Code(s): F03.B0 - Unspecified dementia, moderate, without behavioral disturbance, psychotic disturbance, mood disturbance, and anxiety"
[2024-04-20] MEDS: LORazepam 1 MG TAB SL STA ×2 (14:16→19:42)
--- NOTE | 2024-04-20 17:20 | Billing Data ---
Date of Service April 20, 2024 Coding Level of Care Code 26183 SUB INP/OBS CARE
--- NOTE | 2024-04-21 08:02 | Hospitalist Progress Note ---
"Date of Service April 21, 2024 Assessment & Plan (1) Dementia: Plan: Mercedes is a 79F w/ PMH of glaucoma, dementia, and hypothyroidism who presented to the hospital after being found wandering outdoors at night. Dementia | Confusion - Patient found wandering outside prior to arrival - No acute pathology on Head CT - No evidence of metabolic encephalopathy - Labs unremarkable, UDS negative - Office of aging involved 04/18 Scheduled to evaluated patient Court order obtained for 72 hour protection hold Meeting with [facility] on 04/20. Asymptomatic Bacteriuria - Abnormal urinalysis w/ negative culture - Patient remains asymptomatic - Discontinue Bactrim Chronic Conditions - Hypothyroidism: Continue Levothyroxine, TSH stable, follows outpatient with Endocrinology - Glaucoma: continue home medications (2) Confusion: (3) Requires assistance with activities of daily living (ADL): (4) Hypothyroidism: (5) UTI (urinary tract infection): (6) Glaucoma: Plan Diet: Regular VTE Prophylaxis: Lovenox 40mg Code: Full Dispo: CM Following, referral to [facility] (meeting on 04/20), no longer able to care for patient at home d/t his own health Admission and Anticipated Discharge Date Admission Date: April 18, 2024 Results & Data Results & Data Vital Signs (Past 12 Hours) Vital Signs Temp Pulse Resp BP Pulse Ox O2 Del Method 04/21/24 07:47 36.4 C L 84 18 158/88 H 96 Room Air (1) Dementia Dementia behavioral or psychological symptom: unspecified whether behavioral, psychotic, or mood disturbance or anxiety Dementia severity: moderate Dementia type: unspecified type Qualified Code(s): F03.B0 - Unspecified dementia, moderate, without behavioral disturbance, psychotic disturbance, mood disturbance, and anxiety"
--- NOTE | 2024-04-21 10:30 | Discharge Summary ---
"Date of Service April 21, 2024 Admission HPI Per Admitting Provider 79 year old female with a past medical history of dementia, glaucoma, hypothyroidism presenting with concern for altered mental status. This evening she was found by a neighbor walking in the street. Patient's friend, Priya, helps to provide history. Notes slow onset of dementia over the past few years. Got significantly worse over the past year, after her daughter in February 2023. has Parkinson's disease. Friends/Family has concerns that she is no longer safe to be at home. Has been hallucinating and has wandered out of the house and gotten lost twice this week. Per Priya there has not been an acute change in mental status, just gradual decline. Admission Exam Per Admitting Provider Constitutional: well-appearing, no acute distress HEENT: NCAT, no conjunctival injection CV: regular rhythm, no murmur appreciated, extremities well-perfused, no LE edema Resp: CTABL, no wheezes/rales/rhonchi appreciated, no increased work of breathing MSK: no gross deformities appreciated Skin: warm, dry, no rash appreciated Neuro: alert, oriented to person and place, no focal neurologic deficit appreciated Principal Diagnosis Dementia Discharge Exam Constitutional: well-appearing, no acute distress HEENT: NCAT, no conjunctival injection CV: regular rhythm, no murmur appreciated, extremities well-perfused, no LE edema Resp: CTABL, no wheezes/rales/rhonchi appreciated, no increased work of breathing GI: soft, nondistended, nontender, BS normoactive MSK: no gross deformities appreciated Skin: warm, dry, no rash appreciated Neuro: A&Ox3, no focal neurologic deficit appreciated Discharge Data Allergies Allergy/AdvReac Type Severity Reaction Status Date / Time No Known Allergies Allergy Verified 04/17/24 23:56 Consultations 04/18/24 00:04 ED Decision to Admit Stat Ordered Studies 04/17/24 19:23 CT head/brain wo con Stat Chest X-Ray 04/17/24 19:08 XR chest 1V not portable HISTORY: Weakness COMPARISON: None. FINDINGS: The lungs are clear. Cardiac silhouette is normal in size. No pleural effusions. No pneumothorax. IMPRESSION: No acute process. ACT 112: Negative or not required by law. Electronically signed by: Bradley Yun M.D. 04/18/2024 8:[address] 04/17/24 19:23 Exam(s): CT HEAD Without Contrast CT head: No acute intracranial hemorrhage. No midline shift or mass effect. The territorial velarde-white matter differentiation is maintained throughout. Age-related cerebral volume loss. Periventricular and subcortical white matter hypoattenuation, consistent with chronic microangiopathy. Electronically signed by: Shankar Barber MD 04/17/24 20:50 PM Hospital Course (1) Dementia: (2) Confusion: (3) Requires assistance with activities of daily living (ADL): (4) Hypothyroidism: (5) UTI (urinary tract infection): (6) Glaucoma: Danny Long is a 79F w/ PMH of glaucoma, dementia, and hypothyroidism who presented to the hospital after being found wandering outdoors at night. Dementia | Confusion - Patient found wandering outside prior to arrival - No acute pathology on Head CT - No evidence of metabolic encephalopathy - Labs unremarkable, UDS negative - Office of aging involved 04/18 Scheduled to evaluated patient Court order obtained for 72 hour protection hold Meeting with [facility] on 04/20, will go to facility on 04/21. Asymptomatic Bacteriuria - Abnormal urinalysis w/ negative culture - Patient remains asymptomatic - Discontinue Bactrim Chronic Conditions - Hypothyroidism: Continue Levothyroxine, TSH stable, follows outpatient with Endocrinology - Glaucoma: continue home medications Total Time Total Time Spent Total Time Spent (In Minutes): <30 Discharge Plan Discharge Items Patient Disposition: Personal Alf Reason For Visit: ALTERED MENTAL STATUS Discharge Diagnosis: Dementia Condition on Discharge: Fair Activity: Per Instructions section Non-emergency contact: Primary Care Provider Call non-emergency contact if: you have any medication questions, your pain is unusual for you and your temperature is above 101.5 Follow-up/Referrals: Mario Rodrigez MD [Primary Care Provider] - Diet: Regular Addtl Attending Provider Instructions: Mercedes is a 79F w/ PMH of glaucoma, dementia, and hypothyroidism who presented to the hospital after being found wandering outdoors at night. Dementia | Confusion - Patient found wandering outside prior to arrival - No acute pathology on Head CT - No evidence of metabolic encephalopathy - Labs unremarkable, UDS negative - Office of aging involved 04/18 Scheduled to evaluated patient Court order obtained for 72 hour protection hold Meeting with [facility] on 04/20, will go to facility on 04/21. Asymptomatic Bacteriuria - Abnormal urinalysis w/ negative culture - Patient remains asymptomatic - Discontinue Bactrim Chronic Conditions - Hypothyroidism: Continue Levothyroxine, TSH stable, follows outpatient with Endocrinology - Glaucoma: continue home medications Pending Studies at Discharge: No Stand-Alone Forms: [facility], Smoking Cessation Skilled Items Patient informed of condition?: Yes DNR: No Discharge Level of Care: Other Communicable Disease: No Discharge Prognosis: Stable Lines: None Urinary Catheter: No Medications and DC Order Prescriptions: Continued liothyronine 5 mcg tablet 5 mcg PO BID Qty: 180 3RF levothyroxine 75 mcg tablet 75 mcg PO DAILY Qty: 90 1RF loteprednol etabonate [Lotemax] 0.5 % drops,suspension 1 drp OPL DIRECTED timolol maleate 0.5 % drops 1 drp OPB .DAILY@1000 Simbrinza 1-0.2 % drops,suspension 1 drp ophthalmic (eye) DIRECTED Rhopressa 0.02 % drops 1 drp ophthalmic (eye) DIRECTED Discharge Orders: Discharge Order (Routine); Ordered 04/21/24 Ordered By: Familia Riley Admission Data Admit Date/Time: 04/18/24 01:27 Attending Provider: Cosme Goodman Admit Provider: Dania Naqvi Primary Care Provider: Mario Rodrigez Other Providers: Ron Rai Other Interventions: Discharge Summary Assessment (RN) Last Done: 04/21/24 13:03 Supervising Physician Co-Signing Physician Notes I personally examined the patient and verified all anderson points of history and exam, discussed case, and agree with decision making with Dr Riley no meaningful HPI review of systems obtainable from patient. [facility] today. Vitals noted, in general she is awake but disoriented pleasant does not appear to be in distress. Breathing unlabored no accessory muscle use good effort. Skin without rashes pallor or icterus. Neuro without focal deficits. Dementia/unsafe at homeon 04/20, extensive discussion with family in regards to med managementand how unfortunately at such as severe state typical dementia medications would really be of no real benefit and possible harm (nausea but she may not be able to voice any GI distress, and therefore it would just appear as a failure to thrive picture), also discussed the role of antipsychotics if necessary and quelling dysphoric behavior ( had asked)and discussed how this also serves a fairly limited role in niche circumstances only. Discussed distraction and redirection techniques as well. Otherwise as above. for personal care today; stable for dc"
--- NOTE | 2024-04-21 16:37 | Billing Data ---
Date of Service April 21, 2024 Coding Level of Care Code 30067 IN/OBS DISCH 30 MIN/LESS
--- NOTE | 2024-04-23 21:18 | Coding Query ---
CODING QUERY To promote full compliance with coding requirements relating to patient care, provider participation is requested in all cases of cutting machine offbearer uncertainty. Please assist us with the question(s) below: Coding Question(s): Glaucoma is documented within the Discharge Summary. Please clarify glaucoma specificity (type, laterality, severity and stage) if known. Physician's Response(s): not known to me; only was part of her acute care documentation due to continuing her home medications for this. thank you. Thank you Sunil Carbajal CCS Principal Diagnosis: "that condition established after study, to be chiefly responsible for occasioning the admission of the patient to the hospital for care." Co-Existing Principal Diagnosis: "when two or more diagnoses equally meet the criteria for principal diagnosis as determined by the circumstances of admission, diagnostic work up, and/or therapy provided, and the Alphabetic Index, Tabular List, or another coding guideline does not provide sequencing direction, any one of the diagnoses may be sequenced first." "When the physician has documented what appears to be a current diagnosis in the body of the record, but has not included the diagnosis in the final diagnostic statement, the physician should be asked whether the diagnosis should be added." (Source Coding [facility] 2 QTR90. p3-4) KEVIN
== END 2024-04-21 15:16 | disposition home or self-care (01) ==
LOC: ED 18:50 → 3N 04-18 01:27 → INTOOBSV 04-18 01:27 → SUATTDRO 04-18 01:27 → 3N 04-18 03:19

== ENCOUNTER 2025-11-10 11:27 | Inpatient (IN) ==
--- NOTE | 2025-11-10 11:47 | Emergency Department Note ---
Impression & Plan Acute respiratory failure with hypoxia, COVID-19 ED Provider Note Name: CONSTANTIN PHELPS Age: 80 Sex: Female Arrives Via: Ambulance Informant: Patient (poor historian), EMS, [facility] ED Provider: Juice Mccullough MD Chief Complaint: Respiratory distress Impression: As per impression above Medical Decision Makin-year-old female arrives from nursing facility for worsening breathing difficulty. Of note significant COVID in nursing facility she lives in. Patient initially with O2 sats in the 90s though they rapidly started declining after getting into the ER. She was given a nebulizer with mild improvement. Given lung exam she is given IV steroids. Did end up testing positive for COVID. Chest x-ray is relatively clear. Laboratory workup otherwise unremarkable. Given significant hypoxia will require hospitalization hospitalist consulted for further management. Triage/Nursing Notes reviewed by Me External Chart Review by me: Discharge summary from 04/21/24 was reviewed by me for past medical history. Differential: Reactive airway disease, pneumonia, pneumothorax, COPD, CHF, infections, cardiac ischemia, pulmonary embolism, musculoskeletal, gastrointestinal, as well as other pathologies. Vital Signs: reviewed and remarkable for hypoxia Interventions: decadron iv, duoneb Labs:ED labs Reviewed by me and remarkable for +covid Imaging:X ray results are stated below per my interpretation: Chest: 1 view: No infiltrate, no effusion, normal cardiac border. EKG:Per my interpretation. Indication shortness of breath. Sinus tachycardia 102 beats minute QTc of 443. There is no ectopy nor ischemia. When compared to EKG September 11, 2024 there is no significant change. Cardiac/Tele Monitoring: Cardiac Monitoring: An Order was placed for continuous cardiac monitoring. The monitor shows a rate of 100 with a normal sinus rhythm. Consults:Dr Marla BENDER Hospitalist discussed the case and she will further evaluate manage patient. Plan: Disposition:Hospitalization. Condition: Fair History of Present Illness: 80-year-old female arrives for evaluation of shortness of breath. Patient has been ill for several days. Rapid worsening throughout the day today. Significant respiratory distress coughing and difficulty catching her breath. She reportedly had been sick about a month ago and never had completely resolved. She lives in local nursing facility with significant COVID burden at this time. Patient denies any chest pain, headache or other concerning signs or symptoms. Is unclear whether she has had any fevers. Oxygenation was a bit low for EMS though not below 90. No falls, trauma, injuries reported. Past Medical History:See Below Home Medications:See Below Allergies:nkda Vitals:Blood Pressure: 107/68, Pulse 104, RR 25, T 37.8C, O2 87% on RA Physical Exam: GENERAL: Patient is unwell/elderly appearing and in mild distress. RESPIRATORY: Moderate dyspnea/tachypnea with diffuse junky lung sounds and expiratory wheezing CARDIOVASCULAR: Tachycardic.No murmur appreciated. GASTROINTESTINAL: Abdomen soft, non-tender, no peritonitis. EXTREMITIES: Normal motion all extremities, no cyanosis, no edema. NEUROLOGIC: Alert and oriented. Patient is blind. No focal deficits appreciated. SKIN: No rash, no jaundice, no diaphoresis. PSYCH: Appropriate GCS: 15 ED Course: Times/Reassessments: Oxygen did tend to trend down while in department. Requiring OxyMask though patient not requiring BiPAP at this time. Juice Mccullough MD Past Med/Surg History Problem List (Updated 11/12/25 @ 13:52 by Juice Mccullough MD) Acute respiratory failure with hypoxia (Acute) COVID-19 (Acute) Insomnia Depression with anxiety Auditory hallucination Hallucination, visual Glaucoma Requires assistance with activities of daily living (ADL) Amnesia (Acute) Wandering (Acute) Dementia (Acute) Confusion (Acute) Hypothyroidism Medical History UTI (urinary tract infection) Dementia Lynne's thyroiditis Goiter Family History (Updated 11/10/25 @ 13:57 by Darling Gutiérrez MD) Other Family history non-contributory Social History Smoking Status: Unknown if ever smoked Hx Substance Use: No Preferred Language: Italian Communication Ability: Impaired Nephrology Social Worker Required: No Current Living Situation: Intermediate Current Living Situation Comment: [facility] Feels Safe at Home: Yes Assistive Devices: Walker Allergies Allergies Allergy/AdvReac Type Severity Reaction Status Date / Time No Known Allergies Allergy Verified 04/17/24 23:56 Home Meds Home Medications Medication Instructions Recorded Confirmed acetaminophen 650 mg tablet 650 mg PO Q4H PRN Pain 11/10/25 11/10/25 brimonidine 0.2 % eye drops 1 drp OPR HS 11/10/25 11/10/25 duloxetine 20 mg capsule,delayed 40 mg PO DAILY 11/10/25 11/10/25 release gabapentin 100 mg capsule 100 mg PO TID 11/10/25 11/10/25 gabapentin 800 mg tablet 800 mg PO TID 11/10/25 11/10/25 hydroxyzine HCl 50 mg tablet 50 mg PO QID PRN Agitation 11/10/25 11/10/25 latanoprost 0.005 % eye drops 1 drp OPR HS 11/10/25 11/10/25 melatonin 3 mg capsule 3 mg PO HS PRN Constipation 11/10/25 11/10/25 polyethylene glycol 3350 17 17 g PO DAILY PRN Constipation 11/10/25 11/10/25 gram/dose oral powder (Miralax) sennosides 8.6 mg tablet (senna) 8.6 mg PO DAILY PRN Constipation 11/10/25 11/10/25 timolol maleate 0.5 % eye drops 1 drp OPR DAILY 11/10/25 11/10/25 Previous Rx's Medication Instructions Recorded liothyronine 5 mcg tablet 5 mcg PO BID #180 tabs 06/07/23 levothyroxine 75 mcg tablet 75 mcg PO DAILY #90 tabs 03/30/24 Results & Data (ED) Laboratory Data 11/12/25 07:10 11/12/25 07:10 Lab Results 11/10/25 11/10/25 Range/Units 11:48 11:50 WBC 9.17 (4.8-10.8) K/ul RBC 5.31 (4.20-5.40) M/uL Hgb 15.9 (12.0-16.0) g/dL Hct 46.8 (37.0-47.0) % MCV 88.1 (80.0-100.0) fL MCH 29.9 (25.0-34.0) pg MCHC 34.0 (32.0-36.0) g/dL RDW Std Deviation 42.7 (36.4-46.3) fL RDW Coeff of Ronald 13.2 (11.5-14.5) % Plt Count 327 (130-400) K/uL MPV 9.7 (9.4-12.4) fL Immature Gran % (Auto) 0.3 % Neut % (Auto) 70.9 % Lymph % (Auto) 18.4 % Hodgeman % (Auto) 10.0 % Eos % (Auto) 0.1 % Baso % (Auto) 0.3 % Neut # (Auto) 6.49 (1.40-6.50) K/uL Lymph # (Auto) 1.69 (1.20-3.40) K/uL Hodgeman # (Auto) 0.92 H (0.11-0.59) K/uL Eos # (Auto) 0.01 (0.00-0.50) K/uL Baso # (Auto) 0.03 (0.00-0.20) K/uL Immature Gran # (Auto) 0.03 (0.01-0.20) K/uL Sodium 136 (136-145) mmol/L Potassium 4.0 (3.5-5.1) mmol/L Chloride 100 (98-107) mmol/L Carbon Dioxide 28 (21-32) mmol/L Anion Gap 8 (3-11) BUN 13 (6-23) mg/dl Creatinine 0.82 (0.6-1.2) mg/dl Est Cr Clr Drug Dosing Not Reportable eGFR 73.17 BUN/Creatinine Ratio 15.9 (10-20) Glucose 108 H (70-99(Fasting)) mg/dl Lactate 1.5 (0.4-2.0) mmol/L Calcium 10.0 (8.6-10.3) mg/dl Magnesium 2.0 (1.7-2.4) mg/dl Total Bilirubin 0.7 (0.2-1.0) mg/dl Direct Bilirubin 0.1 (0-0.2) mg/dl AST 22 (13-39) U/L ALT 11 (7-52) U/L Alkaline Phosphatase 105 H (34-104) U/L Troponin I High Sens 7.1 (0-14) pg/ml Total Protein 8.1 (6.0-8.3) gm/dl Albumin 4.3 (3.4-5.0) gm/dl Procalcitonin 0.34 (0-0.5) ng/ml TSH 0.568 (0.300-4.500) uIu/ml SARS-CoV-2 (PCR) POSITIVE A (Negative) Influenza Type A (PCR) Negative (Neg) Influenza Type B (PCR) Negative (Neg) RSV (RT-PCR) Negative (Neg) Administered Medications Acetaminophen (Acetaminophen 325 Mg Tab) 650 mg PO Q4H PRN PRN Reason: Pain or Fever Stop: 12/10/25 17:07 Last Admin: 11/11/25 00:24 Dose: 650 mg Documented By: ADAMS Albuterol (Albut/Ipratrop 3mg/0.5mg Neb 3 Ml Vial) 3 ml NEB QIDR [facility]; Protocol Stop: 12/10/25 17:07 Last Admin: 11/12/25 10:23 Dose: 3 ml Documented By: Admin: 11/12/25 08:03 Dose: 3 ml Documented By: Admin: 11/11/25 19:42 Dose: 3 ml Documented By: Admin: 11/11/25 13:48 Dose: 3 ml Documented By: Admin: 11/11/25 11:16 Dose: 3 ml Documented By: Admin: 11/11/25 07:07 Dose: 3 ml Documented By: Admin: 11/10/25 20:00 Dose: 3 ml Documented By: Admin: 11/10/25 19:47 Dose: Not Given Documented By: amzion Admin: 11/10/25 17:15 Dose: 3 ml Documented By: JENNIFER Azithromycin (Azithromycin 250 Mg Tab) 250 mg PO QAM [facility] Stop: 11/15/25 09:01 Last Admin: 11/12/25 08:43 Dose: 250 mg Documented By: ROMÁN Brimonidine Tartrate (Brimonidine Tartrate 0.2% 5ml) 1 drops OPR HS [facility] Stop: 12/10/25 20:59 Last Admin: 11/11/25 20:45 Dose: 1 drops Documented By: newton Admin: 11/10/25 21:51 Dose: 1 drops Documented By: leelee Duloxetine HCl (Duloxetine Hcl 20 Mg Cap) 40 mg PO DAILY [facility] Stop: 12/11/25 08:59 Last Admin: 11/12/25 08:44 Dose: 40 mg Documented By: Admin: 11/11/25 08:13 Dose: 40 mg Documented By: rome Enoxaparin Sodium (Enoxaparin Inj 40 Mg/0.4 Ml Syr) 40 mg SQ Q24H SANJEEV Stop: 12/10/25 17:59 Last Admin: 11/11/25 17:39 Dose: 40 mg Documented By: rome Admin: 11/10/25 19:43 Dose: 40 mg Documented By: leelee Gabapentin (Gabapentin 800 Mg Tab) 800 mg PO TID [facility] Stop: 12/10/25 20:59 Last Admin: 11/12/25 08:44 Dose: 800 mg Documented By: Admin: 11/11/25 20:46 Dose: 800 mg Documented By: newton Admin: 11/11/25 13:22 Dose: 800 mg Documented By: rome Admin: 11/11/25 08:13 Dose: 800 mg Documented By: rome Admin: 11/10/25 21:51 Dose: 800 mg Documented By: leelee Gabapentin (Gabapentin 100 Mg Cap) 100 mg PO TID [facility] Stop: 12/10/25 20:59 Last Admin: 11/12/25 08:44 Dose: 100 mg Documented By: Admin: 11/11/25 20:46 Dose: 100 mg Documented By: newton Admin: 11/11/25 13:22 Dose: 100 mg Documented By: rome Admin: 11/11/25 08:13 Dose: 100 mg Documented By: rome Admin: 11/10/25 21:51 Dose: 100 mg Documented By: leelee Guaifenesin/Dextromethorphan (Guaifenesin/Dextrom Syrup 200mg/20mg 10ml Udc) 10 ml PO TID SANJEEV Stop: 12/11/25 12:29 Last Admin: 11/12/25 08:43 Dose: 10 ml Documented By: Admin: 11/11/25 20:46 Dose: 10 ml Documented By: newton Admin: 11/11/25 13:21 Dose: 10 ml Documented By: rome Hydroxyzine HCl (Hydroxyzine Hcl 25 Mg Tab) 50 mg PO QID PRN PRN Reason: Agitation Stop: 12/10/25 18:18 Last Admin: 11/10/25 18:44 Dose: 50 mg Documented By: leelee Remdesivir 100 mg/ Sodium (Chloride) 250 mls @ 250 mls/hr IV Q24H SANJEEV Stop: 11/14/25 18:59 Last Infusion: 11/11/25 19:25 Dose: Infused Documented By: newton Admin: 11/11/25 17:40 Dose: 250 mls/hr Documented By: rome Dexamethasone 6 mg/ Syringe 1.5 mls @ 1 mls/min IV DAILY SANJEEV Stop: 11/21/25 08:59 Last Admin: 11/12/25 09:00 Dose: 1 mls/min Documented By: Admin: 11/11/25 09:29 Dose: 1 mls/min Documented By: rome Ceftriaxone Sodium (Rocephin) 1,000 mg in 50 mls @ 100 mls/hr IV Q24H SANJEEV Stop: 11/16/25 12:59 Last Infusion: 11/11/25 14:17 Dose: Infused Documented By: rome Admin: 11/11/25 13:21 Dose: 100 mls/hr Documented By: rome Latanoprost (Latanoprost 0.005% Op Soln 2.5 Ml Btl) 1 drops OPR HS SANJEEV Stop: 12/10/25 20:59 Last Admin: 11/11/25 20:45 Dose: 1 drops Documented By: newton Admin: 11/10/25 21:50 Dose: 1 drops Documented By: leelee Levothyroxine Sodium (Levothyroxine Sodium 75 Mcg Tablet) 75 mcg PO DAILYBB SANJEEV Stop: 12/11/25 06:29 Last Admin: 11/12/25 05:50 Dose: 75 mcg Documented By: newton Admin: 11/11/25 05:46 Dose: 75 mcg Documented By: ADAMS Liothyronine Sodium (Liothyronine Sodium 5 Mcg Tab) 5 mcg PO BID SANJEEV Stop: 12/10/25 20:59 Last Admin: 11/12/25 08:43 Dose: 5 mcg Documented By: Admin: 11/11/25 20:47 Dose: 5 mcg Documented By: newton Admin: 11/11/25 08:13 Dose: 5 mcg Documented By: rome Admin: 11/10/25 21:51 Dose: 5 mcg Documented By: leelee Timolol Maleate (Timolol Maleate 0.5% Op Soln 5 Ml Btl) 1 drops OPR DAILY SANJEEV Stop: 12/11/25 08:59 Last Admin: 11/12/25 08:45 Dose: 1 drops Documented By: Admin: 11/11/25 08:14 Dose: 1 drops Documented By: rome Discontinued Medications Albuterol (Albut/Ipratrop 3mg/0.5mg Neb 3 Ml Vial) 3 ml NEB NOW STA; Protocol Stop: 11/10/25 11:45 Last Admin: 11/10/25 11:52 Dose: 3 ml Documented By: cheryle Albuterol (Albut/Ipratrop 3mg/0.5mg Neb 3 Ml Vial) Confirm Administered Dose 3 ml .ROUTE .STK-MED ONE Stop: 11/10/25 17:13 Last Admin: 11/10/25 17:15 Dose: Not Given Documented By: JENNIFER Azithromycin (Azithromycin 250 Mg Tab) 500 mg PO NOW ONE Stop: 11/11/25 12:11 Last Admin: 11/11/25 13:22 Dose: 500 mg Documented By: rome Dexamethasone Sodium Phosphate (DexamethasonePf 10 Mg/Ml Vial) 10 mg IV NOW ONE Stop: 11/10/25 11:45 Last Admin: 11/10/25 11:52 Dose: 10 mg Documented By: cheryle Hydralazine HCl (Hydralazine Hcl 20 Mg/Ml Vial) 5 mg IV Q8H PRN PRN Reason: SBP>180 Stop: 12/10/25 17:07 Last Admin: 11/10/25 17:24 Dose: 5 mg Documented By: [id number] Hydralazine HCl (Hydralazine Hcl 20 Mg/Ml Vial) 5 mg IV NOW ONE Stop: 11/10/25 18:19 Last Admin: 11/10/25 18:25 Dose: 5 mg Documented By: leelee Remdesivir 200 mg/ Sodium (Chloride) 250 mls @ 125 mls/hr IV ONE STA Stop: 11/10/25 19:14 Last Infusion: 11/10/25 20:08 Dose: Infused Documented By: leelee Admin: 11/10/25 18:03 Dose: 125 mls/hr Documented By: [id number] Ioversol (Optiray 320 125ml) 118 ml IV ONCE ONE Stop: 11/10/25 14:39 Last Admin: 11/10/25 14:38 Dose: 118 ml Documented By: KIKO Discharge Plan Visit Data Chief Complaint: Illness Stated Complaint: FLU LIKE SX, CONGESTION ED Provider: Juice Mccullough Discharge Problem: Acute respiratory failure with hypoxia, COVID-19 Patient Disposition: Admitted As Inpatient Condition: Fair Discharge Instructions Interventions: ED Discharge Assessment Last Done: 11/10/25 17:08
[2025-11-10] MEDS: dexAMETHasone**PF** 10 MG/ML VIAL IV ONE (11:52)
[2025-11-10] MEDS: ALBUT/IPRATROP 3MG/0.5MG NEB 3 ML VIAL NEB STA (11:52)
--- NOTE | 2025-11-10 12:10 | XRay Report ---
SINGLE VIEW CHEST CLINICAL HISTORY: Dyspnea FINDINGS: An AP, portable, upright chest radiograph is compared to study dated 09/11/2024. The heart is mildly enlarged noting atherosclerotic calcification of the thoracic aorta. The pulmonary vasculat ure is noncongested. Chronic interstitial thickening is similar to previous. There is mild bibasilar scarring/atelectasis. The lungs and pleural spaces are otherwise clear. No pneumothorax is seen. The skeletal structures are osteopenic. The bony thorax is grossly intact. Arthritic change is noted in t he right shoulder. IMPRESSION: Cardiomegaly with no active disease in the chest. ACT 112: Negative or not required by law. Electronically signed by: Familia Rosario M.D. 11/10/2025 12:09 PM
[2025-11-10 12:11] LABS: Hematocrit (blood only) 46.8 % (37.0-47.0); Hemoglobin 15.9 g/dL (12.0-16.0); Immature Granulocytes # (auto) 0.03 K/uL (0.01-0.20); Immature Granulocytes % (auto) 0.3 %; Mean Corpuscular Hemoglobin 29.9 pg (25.0-34.0); Mean Corpuscular Volume 88.1 fL (80.0-100.0); Platelet Count 327 K/uL (130-400); RDW Standard Deviation 42.7 fL (36.4-46.3); Red Blood Count 5.31 M/uL (4.20-5.40); White Blood Count 9.17 K/ul (4.8-10.8)
[2025-11-10 12:28] LABS: Alanine Aminotransferase 11 U/L (7-52); Albumin Level 4.3 gm/dl (3.4-5.0); Alkaline Phosphatase 105 U/L (34-104); Anion Gap 8 (3-11); Bilirubin,Total 0.7 mg/dl (0.2-1.0); Blood Urea Nitrogen 13 mg/dl (6-23); Calcium 10.0 mg/dl (8.6-10.3); Carbon Dioxide 28 mmol/L (21-32); Chloride 100 mmol/L (98-107); Glucose 108 mg/dl (70-99(Fasting)); Magnesium 2.0 mg/dl (1.7-2.4); Potassium 4.0 mmol/L (3.5-5.1); Sodium 136 mmol/L (136-145); Total Protein 8.1 gm/dl (6.0-8.3)
[2025-11-10 12:42] LABS: Thyroid Stimulating Hormone 0.568 uIu/ml (0.300-4.500)
[2025-11-10 12:48] LABS: Influenza A virus by PCR Negative (Neg); Influenza B virus by PCR Negative (Neg); SARS CoV2 RNA(COVID-19) Ceph POSITIVE (Negative)
--- NOTE | 2025-11-10 13:43 | History & Physical Report ---
Date of Service November 10, 2025 Assessment & Plan (1) COVID-19: (2) Acute respiratory failure with hypoxia: (3) Depression with anxiety: (4) Dementia: Plan This patient is a 80-year-old female with a history of dementia, depression, glaucoma, chronic pain, hypothyroidism, neuropathy, who resides at a personal- senior care, who presented to the ED with significant respiratory distress, cough, shortness of breath worsening through the day. She lives in a personal care facility that has significant COVID burden at this time. The personal-senior care reported to the ED physician via EMS that she had been sick several weeks ago, however her best friend and POA whom I spoke with on the phone said that the patient has not been sick at all. In fact, she visited with her 2 days ago and the patient was doing very well. Her COVID-19 test in the ED was positive. Her pulse ox was below 89% and she was placed on 4L NC O2 initially and then was up to 10 L O2 when I saw her with a lot of rhonchi and wheezing. She was quite hypertensive and mildly tachycardic. The patient was unable to give me any meaningful information except that she denied pain except for a mild headache. A CXR was negative for pneumonia and a procalcitonin was negative. She was given a dose of IV Decadron and an albuterol nebulizer. I then ordered a CT angiogram of the chest which showed moderate airway thickening and mucous plugging in the lower lobes with mild atelectasis, but no PE. She will be admitted for COVID-19 with acute respiratory failure with hypoxemia. #COVID-19/acute respiratory failure with hypoxemia/acute bronchitis-no evidence of pneumonia on imaging but with bronchitis mucous plugging. No history of chronic lung disease. Procalcitonin is negative making bacterial superinfection not likely - Admit to medical floor telemetry - Start remdesivir 5-day course - Continue dexamethasone 6 mg IV once daily - Supplemental O2 to keep pulse ox greater than 90%-switching to high flow nasal cannula - Pulmonary toilet, bronchodilators scheduled 4 times daily, flutter valve #Acute metabolic encephalopathy/dementia/depression-encephalopathy secondary to hypoxemia, COVID-19 in the setting of severe dementia. She is consistently trying to pull off her oxygen and causing severely low oxygen levels. - Apply soft limb restraint and/or cloth mitts to keep her from pulling off her oxygen - Hydroxyzine as needed for agitation ordered from home - Continue home duloxetine - Supportive care - Treating COVID-19 #Elevated blood pressures without a diagnosis of HTN-blood pressure is significantly elevated secondary to IV steroids, anxiety as per her POA she does get this at times. She is not on home antihypertensives - IV hydralazine as needed - Monitor BPs #Chronic pain/neuropathy-no acute issues - Continue home gabapentin 900 mg p.o. 3 times daily - Tylenol as needed for pain #Glaucoma/blindness/OS enucleation-no acute issues - Continue home eyedrops for right eye #Hypothyroidism-no acute issues, TSH normal - Continue home levothyroxine, liothyronine DVT prophylaxis-Lovenox SQ, SCDs Disposition-admit to medical floor with telemetry. Discussed care with her POA on the phone. I was not able to get in touch with her but the POA reports that the has Parkinson's disease and what sounds like some developing dementia. Her POA Priya has been her best friend for 45 years. She reports that the patient has always said she wanted to be a DNR DNI and did not want any artificial feeds etc. [facility] says the complete opposite-this form says she is a full code and wants everything done. Her POA says that this is absolutely not true and wants her to be a DNR DNI and she will address the POLST form with Haley lofton. We can also change the POLST form prior to discharge from the hospital. History of Present Illness Chief Complaint: Shortness of breath Primary Care Provider: Mario Rodrigez MD This patient is a 80-year-old female with a history of dementia, depression, glaucoma, chronic pain, hypothyroidism, neuropathy, who resides at a personal- senior care, who presented to the ED with significant respiratory distress, cough, shortness of breath worsening through the day. She lives in a personal care facility that has significant COVID burden at this time. The personal-senior care reported to the ED physician via EMS that she had been sick several weeks ago, however her best friend and POA whom I spoke with on the phone said that the patient has not been sick at all. In fact, she visited with her 2 days ago and the patient was doing very well. Her COVID-19 test in the ED was positive. Her pulse ox was below 89% and she was placed on 4L NC O2 initially and then was up to 10 L O2 when I saw her with a lot of rhonchi and wheezing. She was quite hypertensive and mildly tachycardic. The patient was unable to give me any m eaningful information except that she denied pain except for a mild headache. A CXR was negative for pneumonia and a procalcitonin was negative. She was given a dose of IV Decadron and an albuterol nebulizer. I then ordered a CT angiogram of the chest which showed moderate airway thickening and mucous plugging in the lower lobes with mild atelectasis, but no PE. She will be admitted for COVID-19 with acute respiratory failure with hypoxemia. Allergies Allergy/AdvReac Type Severity Reaction Status Date / Time No Known Allergies Allergy Verified 04/17/24 23:56 Home Medications Medication Instructions Recorded Confirmed Type liothyronine 5 mcg tablet 5 mcg PO BID #180 tabs 06/07/23 11/10/25 Rx levothyroxine 75 mcg tablet 75 mcg PO DAILY #90 tabs 03/30/24 11/10/25 Rx acetaminophen 650 mg tablet 650 mg PO Q4H PRN Pain 11/10/25 11/10/25 History brimonidine 0.2 % eye drops 1 drp OPR HS 11/10/25 11/10/25 History duloxetine 20 mg capsule,delayed 40 mg PO DAILY 11/10/25 11/10/25 History release gabapentin 100 mg capsule 100 mg PO TID 11/10/25 11/10/25 History gabapentin 800 mg tablet 800 mg PO TID 11/10/25 11/10/25 History hydroxyzine HCl 50 mg tablet 50 mg PO QID PRN Agitation 11/10/25 11/10/25 History latanoprost 0.005 % eye drops 1 drp OPR HS 11/10/25 11/10/25 History melatonin 3 mg capsule 3 mg PO HS PRN Constipation 11/10/25 11/10/25 History polyethylene glycol 3350 17 17 g PO DAILY PRN Constipation 11/10/25 11/10/25 History gram/dose oral powder (Miralax) sennosides 8.6 mg tablet (senna) 8.6 mg PO DAILY PRN Constipation 11/10/25 11/10/25 History timolol maleate 0.5 % eye drops 1 drp OPR DAILY 11/10/25 11/10/25 History Past Med/Surg History Problem List (Updated 11/10/25 @ 14:05 by Darling Gutiérrez MD) Acute respiratory failure with hypoxia COVID-19 Insomnia Depression with anxiety Auditory hallucination Hallucination, visual Glaucoma Requires assistance with activities of daily living (ADL) Amnesia (Acute) Wandering (Acute) Dementia (Acute) Confusion (Acute) Hypothyroidism Medical History UTI (urinary tract infection) Dementia Lynne's thyroiditis Goiter Family History (Updated 11/10/25 @ 13:57 by Darling Gutiérrez MD) Other Family history non-contributory Social History Smoking Status: Never smoker Preferred Language: Austrian Communication Ability: Effective Varnish Inspector Required: No Current Living Situation: Spouse Feels Safe at Home: Yes Assistive Devices: None Review of Systems Review of Systems: Unobtainable due to cognitive status Physical Exam Constitutional: WD/WN, vitals as above Eyes: PERRL, conjunctivae normal, anicteric sclerae ENMT: Mouth: + dry oral mucous membranes Neck: trachea midline, no thyromegaly Respiratory: + cough; no respiratory distress Ausc ultation: + rhonchi (Bilateral lower lung adhikari) and + wheezes (Diffusely); no crackles Cardiovascular: Rate/Rhythm: regular rhythm and + tachycardic (Mild) Heart Sounds: no murmur Extremities: no edema Chest (Breasts): Chest: normal inspection of chest Gastrointestinal (Abdomen): normal bowel sounds, soft, nontender, no hepatosplenomegaly Musculoskeletal: Extremities: extremities normal to inspection; no cyanosis and no clubbing Skin: no rashes, warm and dry Neurologic: moves all extremities and awake; no focal motor deficits Psychiatric: Orientation: alert (Awake and responding to questions but somewhat drowsy at times), oriented to person and cooperative; + not oriented to place and + not oriented to time Lymphatic: no lymphedema Results & Data Results & Data Vital Signs (Past 12 Hours) Vital Signs Temp Pulse Resp BP Pulse Ox O2 Del Method O2 Flow Rate 11/10/25 12:05 103 H 11/10/25 12:01 88 L Oxymask 4 11/10/25 11:18 37.2 C 102 H 19 199/103 H 96 Nasal Cannula 3 Laboratory Results CBC, BMP, lactate, LFTs, procalcitonin, TSH, COVID/flu/RSV reviewed Diagnostic Findings CXR image personally reviewed by me and agree with the following report: Chest X-Ray 11/10/25 11:44 SINGLE VIEW CHEST CLINICAL HISTORY: Dyspnea FINDINGS: An AP, portable, upright chest radiograph is compared to study dated 09/11/2024. The heart is mildly enlarged noting atherosclerotic calcification of the thoracic aorta. The pulmonary vasculature is noncongested. Chronic interstitial thickening is similar to previous. There is mild bibasilar sca rring/atelectasis. The lungs and pleural spaces are otherwise clear. No pneumothorax is seen. The skeletal structures are osteopenic. The bony thorax is grossly intact. Arthritic change is noted in the right shoulder. IMPRESSION: Cardiomegaly with no active disease in the chest. ACT 112: Negative or not required by law. Electronically signed by: Familia Rosario M.D. 11/10/2025 12:[address] angiogram chest reviewed: Chest CTA 11/10/25 14:01 EXAM: CT Chest With Intravenous Contrast INDICATION: COVID-positive. Assess for pulmonary embolus. TECHNIQUE: Axial computed tomography images of the chest with intravenous contrast. Sagittal and coronal reformatted images were created and reviewed. This CT exam was performed using one or more of the following dose reduction techniques: automated exposure control, adjustment of the mA and/or kV according to patient size, and/or use of iterative reconstruction technique. CONTRAST: 118 ml of Optiray 320 was administered intravenously. COMPARISON: No relevant prior studies available. FINDINGS: Limitations: None. Lungs and pleural spaces: There is moderate airway thickening particularly involving the lower lobes. There are some segments of mucous plugging in the left lower lobe with mild atelectasis. No pleural effusion or pneumothorax. No mass. Heart: Mild cardiomegaly. No right heart strain. No pericardial effusion. Thyroid: No abnormality noted. Bones/joints: Old fracture anterior left seventh rib. Degenerative changes in the spine. No acute osseous abnormality. Osteochondrosis adjacent to the right coracoid process. Small sclerotic nodules likely bone islands noted in T1, T10 and T12. No acute osseous abnormality. Soft tissues: No acute abnormality noted. Vasculature: No abnormality noted. No thoracic aortic aneurysm. Lymph nodes: No enlarged lymph nodes. IMPRESSION: 1. No pulmonary embolus noted. 2. Bilateral lower lobe bronchitis with subsegmental mucous plugging and atelectasis left lower lobe. ECG Additional Comments: ECG on 11/06/2025 at 1231 with sinus tachycardia, rate 102, no acute ischemic changes, pulmonary disease pattern Code Status & VTE Plan Code Status DNR/DNI as discussed with patient's Priya STARR VTE Prophylaxis Plan VTE Prophylaxis will be ordered: Yes PG Care Time/CCT Total # of Minutes Spent Total Time Spent with Patient: Total time spent is greater than 50% in coordination of care (as documented) at patient's floor/unit and/or counseling patient: Coding Level of Care Code 85799 INT INP/OBS CARE 3/75MIN Diagnoses COVID-19 U07.1 Acute respiratory failure with hypoxia J96.01 Depression with anxiety F41.8 Dementia F03.B0 Dementia behavioral or psychological symptom: unspecified whether behavioral, psychotic, or mood disturbance or anxiety Dementia severity: moderate Dementia type: unspecified type (4) Dementia Dementia behavioral or psychological symptom: unspecified whether behavioral, psychotic, or mood disturbance or anxiety Dementia severity: moderate Dementia type: unspecified type Qualified Code(s): F03.B0 - Unspecified dementia, moderate, without behavioral disturbance, psychotic disturbance, mood disturbance, and anxiety
[2025-11-10] MEDS: OPTIRAY 320 125ml IV ONE (14:38)
--- NOTE | 2025-11-10 14:55 | CT Scan Report ---
EXAM: CT Chest With Intravenous Contrast INDICATION: COVID-positive. Assess for pulmonary embolus. TECHNIQUE: Axial computed tomography images of the chest with intravenous contrast. Sagittal and coronal reformatted images were created and reviewed. This CT exam was performed using one or more of the following dose reduction techniques: automated exposure control, adjustment of the mA and/or kV according to patient size, and/or use of iterative reconstruction technique. CONTRAST: 118 ml of Optiray 320 was administered intravenously. COMPARISON: No relevant prior studies available. FINDINGS: Limitations: None. Lungs and pleural spaces: There is moderate airway thickening particularly involving the lower lobes. There are some segments of mucous plugging in the left lower lobe with mild atelectasis. No pleural effusion or pneumothorax. No mass. Heart: Mild cardiomegaly. No right heart strain. No pericardial effusion. Thyroid: No abnormality noted. Bones/joints: Old fracture anterior left seventh rib. Degenerative changes in the spine. No acute osseous abnormality. Osteochondrosis adjacent to the right coracoid process. Small sclerotic nodules likely bone islands noted in T1, T10 and T12. No acute osseous abnormality. Soft tissues: No acute abnormality noted. Vasculature: No abnormality noted. No thoracic aortic aneurysm. Lymph nodes: No enlarged lymph nodes. IMPRESSION: 1. No pulmonary embolus noted. 2. Bilateral lower lobe bronchitis with subsegmental mucous plugging and atelectasis left lower lobe. ACT 112: N/A Electronically signed by Mercedez Duong 11-10-2025 2:54 PM
--- NOTE | 2025-11-10 15:06 | Electrocardiogram Report ---
Test Reason : Blood Pressure : */* mmHG Vent. Rate : 102 BPM Atrial Rate : 102 BPM P-R Int : 150 ms QRS Dur : 74 ms QT Int : 340 ms P-R-T Axes : 59 -67 56 degrees QTcB Int : 443 ms Sinus tachycardia Left axis deviation Abnormal ECG When compared with ECG of 11-Sep-2024 06:08, No significant change was found Confirmed by Juliano Haynes ([id number]) on 11/10/2025 3:06:30 PM Referred By: REFERRED SELF Confirmed By: Juliano Haynes
[2025-11-10 15:40] LABS: Appearance Urine Clear (Clear); Bacteria Urine Automated None Seen (None Seen); Cast Urine Automated 0-2 /lpf (0-2); Epithelial Cell Urine Auto 0-2 /hpf (0-2); Glucose Urine UA Negative (Negative); WBC Urine Automated 0-5 /hpf (0-5)
[2025-11-10] MEDS ORDERED: MELATONIN 3 MG TAB PO PRN (17:08)
[2025-11-10] MEDS ORDERED: POLYETHYLENE (MIRALAX) 17 GM PACK PO PRN ×2 (17:08→18:19)
[2025-11-10] MEDS ORDERED: ONDANSETRON INJ 2 MG/ML 2 ML VIAL IV PRN (17:08)
[2025-11-10] MEDS: ALBUT/IPRATROP 3MG/0.5MG NEB 3 ML VIAL ONE (17:15)
[2025-11-10] MEDS: ALBUT/IPRATROP 3MG/0.5MG NEB 3 ML VIAL NEB SCH (17:15)
[2025-11-10] MEDS: REMDESIVIR 200 MG in SODIUM CHLORIDE 0.9% 210 ML IV STA (18:03)
[2025-11-10] MEDS ORDERED: MELATONIN 3 MG PO PRN (18:19)
[2025-11-10] MEDS: ENOXAPARIN INJ 40 MG/0.4 ML SYR SQ SCH (19:43)
[2025-11-10] MEDS: LATANOPROST 0.005% OP SOLN 2.5 ML BTL OPR SCH (21:50)
[2025-11-10] MEDS: GABAPENTIN 800 MG TAB PO SCH (21:51)
[2025-11-10] MEDS: LIOTHYRONINE SODIUM 5 MCG TAB PO SCH (21:51)
[2025-11-10] MEDS: BRIMONIDINE TARTRATE 0.2% 5ML OPR SCH (21:51)
[2025-11-10] MEDS: GABAPENTIN 100 MG CAP PO SCH (21:51)
[2025-11-11] MEDS: ACETAMINOPHEN 325 MG TAB PO PRN (00:24)
[2025-11-11] MEDS: LEVOTHYROXINE SODIUM 75 MCG TABLET PO SCH (05:46)
[2025-11-11 06:37] LABS: Hematocrit (blood only) 46.0 % (37.0-47.0); Hemoglobin 15.6 g/dL (12.0-16.0); Immature Granulocytes # (auto) 0.07 K/uL (0.01-0.20); Immature Granulocytes % (auto) 0.5 %; Mean Corpuscular Hemoglobin 29.9 pg (25.0-34.0); Mean Corpuscular Volume 88.3 fL (80.0-100.0); Platelet Count 349 K/uL (130-400); RDW Standard Deviation 42.5 fL (36.4-46.3); Red Blood Count 5.21 M/uL (4.20-5.40); White Blood Count 13.60 K/ul (4.8-10.8)
[2025-11-11 07:10] LABS: Alanine Aminotransferase 10.0 U/L (7-52); Albumin Globulin Ratio 1.3 (0.9-2); Albumin Level 4.1 gm/dl (3.4-5.0); Alkaline Phosphatase 78.0 U/L (34-104); Anion Gap 10.0 (3-11); Bilirubin,Total 0.9 mg/dl (0.2-1.0); Blood Urea Nitrogen 24.0 mg/dl (6-23); Calcium 9.2 mg/dl (8.6-10.3); Carbon Dioxide 28.0 mmol/L (21-32); Chloride 98.0 mmol/L (98-107); Creatinine Clr Calc Pharmacy 34.3 ml/min; Globulin 3.2 gm/dl (2.5-4.0); Glucose 109.0 mg/dl (70-99(Fasting)); Magnesium 2.2 mg/dl (1.7-2.4); Potassium 4.0 mmol/L (3.5-5.1); Sodium 136.0 mmol/L (136-145); Total Protein 7.3 gm/dl (6.0-8.3)
[2025-11-11] MEDS: TIMOLOL MALEATE 0.5% OP SOLN 5 ML BTL OPR SCH (08:14)
[2025-11-11] MEDS: dexAMETHasone 6 MG in SYRINGE 0 ML IV SCH (09:29)
--- NOTE | 2025-11-11 12:12 | Hospitalist Progress Note ---
Date of Service November 11, 2025 Assessment & Plan (1) COVID-19: (2) Acute respiratory failure with hypoxia: (3) Depression with anxiety: (4) Dementia: Plan This patient is a 80-year-old female with a history of dementia, depression, glaucoma, chronic pain, hypothyroidism, neuropathy, who resides at a personal- senior living, who presented to the ED with significant respiratory distress, cough, shortness of breath worsening through the day. She lives in a personal care facility that has significant COVID burden at this time. Her COVID-19 test in the ED was positive. Her pulse ox was below 89% and she was placed on 4L NC O2 initially and then was up to 10 L O2 when I saw her with a lot of rhonchi and wheezing, quite hypertensive and mildly tachycardic. A CXR was negative for pneumonia and a procalcitonin was negative. She was given a dose of IV Decadron and an albuterol nebulizer. I then ordered a CT angiogram of the chest which showed moderate airway thickening and mucous plugging in the lower lobes with mild atelectasis, but no PE. She is admitted for COVID-19 with acute bronchitis versus developing pneumonia, with acute respiratory failure with hypoxemia. #COVID-19/acute respiratory failure with hypoxemia/acute bronchitis-no evidence of pneumonia on CXR but with bronchitis and mucous plugging with atelectasis on CTA chest. No history of chronic lung disease. Procalcitonin is negative making bacterial superinfection not likely, however with copious sputum being produced as per staff. Still remains on high flow nasal cannula at 50 L at 80% FiO2 but not tachypneic - Continued stay on medical floor telemetry - Continue remdesivir 5-day course - Continue dexamethasone 6 mg IV once daily - Continue supplemental O2 to keep pulse ox greater than 90%-remains on high flow nasal cannula - Pulmonary toilet, bronchodilators scheduled 4 times daily, flutter valve - Add guaifenesin DM 10 mL p.o. 3 times daily scheduled for productive cough - Add ceftriaxone and azithromycin to cover for secondary bacterial pneumonia #Acute metabolic encephalopathy/dementia/depression-encephalopathy secondary to hypoxemia, COVID-19 in the setting of severe dementia. She is consistently trying to pull off her oxygen and causing severely low oxygen levels. She is now in limb restraints -Continue soft limb restraint and/or cloth mitts to keep her from pulling off her oxygen - Hydroxyzine as needed for agitation ordered from home - Continue home duloxetine - Supportive care -Continue treating COVID-19 and giving supplemental O2 #Elevated blood pressures without a diagnosis of HTN-blood pressure is significantly elevated on arrival secondary to IV steroids, anxiety. She is not on home antihypertensives. BPs now normal - IV hydralazine as needed - Monitor BPs #Chronic pain/neuropathy-no acute issues - Continue home gabapentin 900 mg p.o. 3 times daily - Tylenol as needed for pain #Glaucoma/blindness/OS enucleation-no acute issues - Continue home eyedrops for right eye #Hypothyroidism-no acute issues, TSH normal - Continue home levothyroxine, liothyronine DVT prophylaxis-Lovenox SQ, SCDs Disposition-continued stay on medical floor with telemetry. Discussed care with her POA on the phone on the day of admission. I was not able to get in touch with her but the POA reports that the has Parkinson's disease and what sounds like some developing dementia. Her POA Priya has been her best friend for 45 years. She reports that the patient has always said she wanted to be a DNR DNI and did not want any artificial feeds etc. The POLST form that came with her from the custodial says the complete opposite-this form says she is a full code and wants everything done. Her POA says that this is absolutely not true and wants her to be a DNR DNI and she will address the POLST form with Haley lofton. We can also change the POLST form prior to discharge from the hospital. Admission and Anticipated Discharge Date Admission Date: November 10, 2025 Subjective Patient seems improved, still coughing as per staff. Patient denies any problems except does complain of a sore throat with swallowing food. Otherwise, she is not able to tell me much but is pleasant and more alert. Telemetry with normal sinus rhythm, rates 90s-100s Physical Exam Constitutional: WD/WN, vitals as above Neck: trachea midline, no thyromegaly Respiratory: no respiratory distress Auscultation: + rhonchi (Bilateral lower lung adhikari); no crackles and no wheezes Cardiovascular: Rate/Rhythm: regular rhythm Heart Sounds: no murmur Extremities: no edema Chest (Breasts): Chest: normal inspection of chest Gastrointestinal (Abdomen): normal bowel sounds, soft, nontender, no hepatosplenomegaly Musculoskeletal: Extremities: extremities normal to inspection; no cyanosis and no clubbing Skin: no rashes, warm and dry Neurologic: moves all extremities and awake; no focal motor deficits Psychiatric: Orientation: alert, oriented to person and cooperative; + not oriented to place and + not oriented to time Lymphatic: no lymphedema Results & Data Results & Data Vital Signs (Past 12 Hours) Vital Signs Temp Pulse Pulse Resp BP Pulse Ox O2 Del Method 11/11/25 11:16 90 20 96 High Flow Nasal Cannula 11/11/25 08:56 36.5 C 102 H 20 145/81 H 91 Room Air 11/11/25 08:00 90 11/11/25 08:00 High Flow Nasal Cannula 11/11/25 07:07 101 H 24 91 High Flow Nasal Cannula 11/11/25 03:58 85 20 94 High Flow Nasal Cannula 11/11/25 03:13 36.8 C 98 H 18 105/67 93 High Flow Nasal Cannula 11/11/25 02:12 99 H 24 93 High Flow Nasal Cannula 11/11/25 01:28 37.3 C O2 Flow Rate FiO2 11/11/25 11:16 50 90 11/11/25 08:56 11/11/25 08:00 11/11/25 08:00 50 90 11/11/25 07:07 50 90 11/11/25 03:58 50 90 11/11/25 03:13 40 11/11/25 02:12 40 50 11/11/25 01:28 Laboratory Results CBC, BMP, LFTs, blood cultures reviewed PG Care Time/CCT Total # of Minutes Spent Total Time Spent with Patient: Total time spent is greater than 50% in coordination of care (as documented) at patient's floor/unit and/or counseling patient: Coding Level of Care Code 74312 SUB INP/OBS CARE 235MIN Diagnoses COVID-19 U07.1 Acute respiratory failure with hypoxia J96.01 Depression with anxiety F41.8 Dementia F03.B0 Dementia behavioral or psychological symptom: unspecified whether behavioral, psychotic, or mood disturbance or anxiety Dementia severity: moderate Dementia type: unspecified type (4) Dementia Dementia behavioral or psychological symptom: unspecified whether behavioral, psychotic, or mood disturbance or anxiety Dementia severity: moderate Dementia type: unspecified type Qualified Code(s): F03.B0 - Unspecified dementia, mode rate, without behavioral disturbance, psychotic disturbance, mood disturbance, and anxiety
[2025-11-11] MEDS: cefTRIAXone SODIUM 1,000 MG/50 ML BAG IV SCH (13:21)
[2025-11-11] MEDS: AZITHROMYCIN 250 MG TAB PO ONE (13:22)
[2025-11-11] MEDS: REMDESIVIR 100 MG in SODIUM CHLORIDE 0.9% 230 ML IV SCH (17:40)
[2025-11-12 07:46] LABS: Hematocrit (blood only) 39.7 % (37.0-47.0); Hemoglobin 13.4 g/dL (12.0-16.0); Immature Granulocytes # (auto) 0.07 K/uL (0.01-0.20); Immature Granulocytes % (auto) 0.5 %; Mean Corpuscular Hemoglobin 29.5 pg (25.0-34.0); Mean Corpuscular Volume 87.3 fL (80.0-100.0); Platelet Count 302 K/uL (130-400); RDW Standard Deviation 42.6 fL (36.4-46.3); Red Blood Count 4.55 M/uL (4.20-5.40); White Blood Count 15.34 K/ul (4.8-10.8)
[2025-11-12 08:02] LABS: Alanine Aminotransferase 12.0 U/L (7-52); Albumin Globulin Ratio 1.2 (0.9-2); Albumin Level 3.5 gm/dl (3.4-5.0); Alkaline Phosphatase 61.0 U/L (34-104); Anion Gap 8.0 (3-11); Bilirubin,Total 0.5 mg/dl (0.2-1.0); Blood Urea Nitrogen 65.0 mg/dl (6-23); Calcium 9.2 mg/dl (8.6-10.3); Carbon Dioxide 27.0 mmol/L (21-32); Chloride 105.0 mmol/L (98-107); Creatinine Clr Calc Pharmacy 31.3 ml/min; Globulin 2.9 gm/dl (2.5-4.0); Glucose 101.0 mg/dl (70-99(Fasting)); Magnesium 2.7 mg/dl (1.7-2.4); Potassium 3.8 mmol/L (3.5-5.1); Sodium 140.0 mmol/L (136-145); Total Protein 6.4 gm/dl (6.0-8.3)
[2025-11-12] MEDS: AZITHROMYCIN 250 MG TAB PO SCH (08:43)
[2025-11-12] MEDS ORDERED: PHA DELIRIUM CONSULT PRN (16:57)
--- NOTE | 2025-11-12 17:46 | Hospitalist Progress Note ---
Date of Service November 12, 2025 Assessment & Plan (1) COVID-19: (2) Acute respiratory failure with hypoxia: (3) Depression with anxiety: (4) Dementia: Plan This patient is a 80-year-old female with a history of dementia, depression, glaucoma, chronic pain, hypothyroidism, neuropathy, who [facility], who presented to the ED with significant respiratory distress, cough, shortness of breath worsening through the day. She lives in a personal care facility that has significant COVID burden at this time. Her COVID-19 test in the ED was positive. Her pulse ox was below 89% and she was placed on 4L NC O2 initially and then was up to 10 L O2 when I saw her with a lot of rhonchi and wheezing, quite hypertensive and mildly tachycardic. A CXR was negative for pneumonia and a procalcitonin was negative. She was given a dose of IV Decadron and an albuterol nebulizer. I then ordered a CT angiogram of the chest which showed moderate airway thickening and mucous plugging in the lower lobes with mild atelectasis, but no PE. She is admitted for COVID-19 with acute bronchitis versus developing pneumonia, with acute respiratory failure with hypoxemia. #COVID-19/acute respiratory failure with hypoxemia/acute bronchitis-no evidence of pneumonia on CXR but with bronchitis and mucous plugging with atelectasis on CTA chest. No history of chronic lung disease. Procalcitonin is negative making bacterial superinfection not likely, however with copious sputum being produced as per staff. Still remains on high flow nasal cannula at 50 L at 80% FiO2 but not tachypneic - Continued stay on medical floor telemetry - Continue remdesivir, day 2/5 - Continue dexamethasone 6 mg IV once daily - Continue supplemental O2 to keep pulse ox greater than 90%-remains on high flow nasal cannula, stable oxygen needs overnight - Pulmonary toilet, bronchodilators scheduled 4 times daily, flutter valve - Add guaifenesin DM 10 mL p.o. 3 times daily scheduled for productive cough - Add ceftriaxone and azithromycin to cover for secondary bacterial pneumonia - Continue to trend CRP and procalcitonin #Acute metabolic encephalopathy/dementia/depression-encephalopathy secondary to hypoxemia, COVID-19 in the setting of severe dementia. She is consistently trying to pull off her oxygen and causing severely low oxygen levels. She is now in limb restraints -Continue soft limb restraint and/or cloth mitts to keep her from pulling off her oxygen - Hydroxyzine as needed for agitation ordered from home - Continue home duloxetine - Supportive care, improving. Closer to her baseline today. Appropriate and interactive during my visit -Continue treating COVID-19 and giving supplemental O2 #Elevated blood pressures without a diagnosis of HTN-blood pressure is significantly elevated on arrival secondary to IV steroids, anxiety. She is not on home antihypertensives. BPs now normal - IV hydralazine as needed - Monitor BPs, modest elevation, no intervention required at this time #Chronic pain/neuropathy-no acute issues - Continue home gabapentin 900 mg p.o. 3 times daily - Tylenol as needed for pain #Glaucoma/blindness/OS enucleation-no acute issues - Continue home eyedrops for right eye #Hypothyroidism-no acute issues, TSH normal - Continue home levothyroxine, liothyronine DVT prophylaxis-Lovenox SQ, SCDs Disposition-continued stay on medical floor with telemetry. Discussed care with her POA on the phone on the day of admission. I was not able to get in touch with her but the POA reports that the has Parkinson's disease and what sounds like some developing dementia. Her POA Priya has been her best friend for 45 years. She reports that the patient has always said she wanted to be a DNR DNI and did not want any artificial feeds etc. The POLST form that came with her from the [facility] says the complete opposite-this form says she is a full code and wants everything done. Her POA says that this is absolutely not true and wants her to be a DNR DNI and she will address the POLST form with Haley lofton. We can also change the POLST form prior to discharge from the hospital. Admission and Anticipated Discharge Date Admission Date: November 10, 2025 Subjective Doing okay this morning. States she is feeling a bit better. Able to eat lunch during my visit with assistance from staff. Cough is improving. Breathing is improving. No problem with bowel or bladder function. She continues with high flow and tolerating it very well. Physical Exam Constitutional: WD/WN, vitals as above Neck: trachea midline, no thyromegaly Respiratory: no respiratory distress Auscultation: + rhonchi (Bilateral lower lung adhikari); no crackles and no wheezes Cardiovascular: Rate/Rhythm: regular rhythm Heart Sounds: no murmur Extremities: no edema Chest (Breasts): Chest: normal inspection of chest Gastrointestinal (Abdomen): normal bowel sounds, soft, nontender, no hepatosplenomegaly Musculoskeletal: Extremities: extremities normal to inspection; no cyanosis and no clubbing Skin: no rashes, warm and dry Neurologic: moves all extremities and awake; no focal motor deficits Psychiatric: Orientation: alert, oriented to person and cooperative; + not oriented to place and + not oriented to time Lymphatic: no lymphedema Results & Data Results & Data Vital Signs (Past 12 Hours) Vital Signs Temp Pulse Pulse Resp BP BP Pulse Ox 11/12/25 17:07 88 11/12/25 16:45 11/12/25 16:07 36.5 C 105 H 18 146/78 H 92 11/12/25 14:36 85 18 97 11/12/25 11:20 36.3 C L 101 H 20 166/83 H 93 11/12/25 10:24 88 18 100 11/12/25 08:05 36.3 C L 75 20 110/63 95 11/12/25 08:03 75 20 95 11/12/25 07:46 72 O2 Del Method O2 Flow Rate FiO2 11/12/25 17:07 11/12/25 16:45 High Flow Nasal Cannula 50 50 11/12/25 16:07 High Flow Nasal Cannula 11/12/25 14:36 High Flow Nasal Cannula 50 70 11/12/25 11:20 High Flow Nasal Cannula 11/12/25 10:24 High Flow Nasal Cannula 50 90 11/12/25 08:05 High Flow Nasal Cannula 11/12/25 08:03 High Flow Nasal Cannula 50 90 11/12/25 07:46 Laboratory Results 11/10/25 11:50 Aerobic Blood Culture - Preliminary Blood No growth in Aerobic bottle after 48 hours. Anaerobic Blood Culture - Preliminary No growth in Anaerobic bottle after 48 hours. 11/10/25 11:53 Aerobic Blood Culture - Preliminary Blood No growth in Aerobic bottle after 48 hours. Anaerobic Blood Culture - Preliminary No growth in Anaerobic bottle after 48 hours. 11/12/25 07:10 WBC 15.34 H RBC 4.55 Hgb 13.4 Hct 39.7 MCV 87.3 MCH 29.5 MCHC 33.8 RDW Std Deviation 42.6 RDW Coeff of Ronald 13.4 Plt Count 302 MPV 10.3 Immature Gran % (Auto) 0.5 Neut % (Auto) 81.1 Lymph % (Auto) 12.6 [place] % (Auto) 5.7 Eos % (Auto) 0.0 Baso % (Auto) 0.1 Neut # (Auto) 12.43 H Lymph # (Auto) 1.94 [place] # (Auto) 0.88 H Eos # (Auto) 0.00 Baso # (Auto) 0.02 Immature Gran # (Auto) 0.07 Sodium 140 Potassium 3.8 Chloride 105 Carbon Dioxide 27 Anion Gap 8 BUN 65 H D Creatinine 1.17 Est Cr Clr Drug Dosing 31.3 eGFR 47.76 BUN/Creatinine Ratio 55.6 H Glucose 101 H Calcium 9.2 Magnesium 2.7 H Total Bilirubin 0.5 AST 37 ALT 12 Alkaline Phosphatase 61 C-Reactive Protein 13.61 H Total Protein 6.4 Albumin 3.5 Globulin 2.9 Albumin/Globulin Ratio 1.2 Procalcitonin 8.39 H PG Care Time/CCT Total # of Minutes Spent Total Time Spent with Patient: Total time spent is greater than 50% in coordination of care (as documented) at patient's floor/unit and/or counseling patient: Coding Level of Care Code 16665 SUB INP/OBS CARE 235MIN Diagnoses COVID-19 U07.1 Acute respiratory failure with hypoxia J96.01 Depression with anxiety F41.8 Dementia F03.B0 Dementia behavioral or psychological symptom: unspecified whether behavioral, psychotic, or mood disturbance or anxiety Dementia severity: moderate Dementia type: unspecified type (4) Dementia Dementia behavioral or psychological symptom: unspecified whether behavioral, psychotic, or mood disturbance or anxiety Dementia severity: moderate Dementia type: unspecified type Qualified Code(s): F03.B0 - Unspecified dementia, moderate, without behavioral disturbance, psychotic disturbance, mood disturbance, and anxiety
[2025-11-13 07:53] LABS: Hematocrit (blood only) 39.7 % (37.0-47.0); Hemoglobin 13.4 g/dL (12.0-16.0); Immature Granulocytes # (auto) 0.07 K/uL (0.01-0.20); Immature Granulocytes % (auto) 0.5 %; Mean Corpuscular Hemoglobin 29.8 pg (25.0-34.0); Mean Corpuscular Volume 88.2 fL (80.0-100.0); Platelet Count 314 K/uL (130-400); RDW Standard Deviation 43.2 fL (36.4-46.3); Red Blood Count 4.50 M/uL (4.20-5.40); White Blood Count 13.42 K/ul (4.8-10.8)
[2025-11-13 08:13] LABS: Alanine Aminotransferase 14.0 U/L (7-52); Albumin Globulin Ratio 1.2 (0.9-2); Albumin Level 3.4 gm/dl (3.4-5.0); Alkaline Phosphatase 64.0 U/L (34-104); Anion Gap 7.0 (3-11); Bilirubin,Total 0.5 mg/dl (0.2-1.0); Blood Urea Nitrogen 40.0 mg/dl (6-23); Calcium 9.2 mg/dl (8.6-10.3); Carbon Dioxide 29.0 mmol/L (21-32); Chloride 106.0 mmol/L (98-107); Creatinine Clr Calc Pharmacy 56.4 ml/min; Globulin 2.9 gm/dl (2.5-4.0); Glucose 106.0 mg/dl (70-99(Fasting)); Magnesium 2.4 mg/dl (1.7-2.4); Potassium 4.0 mmol/L (3.5-5.1); Sodium 142.0 mmol/L (136-145); Total Protein 6.3 gm/dl (6.0-8.3)
--- NOTE | 2025-11-13 15:06 | Hospitalist Progress Note ---
Date of Service November 13, 2025 Assessment & Plan (1) COVID-19: (2) Acute respiratory failure with hypoxia: (3) Depression with anxiety: (4) Dementia: Plan This patient is a 80-year-old female with a history of dementia, depression, glaucoma, chronic pain, hypothyroidism, neuropathy, who resides at a personal- nursing home, who presented to the ED with significant respiratory distress, cough, shortness of breath worsening through the day. She lives in a personal care facility that has significant COVID burden at this time. Her COVID-19 test in the ED was positive. Her pulse ox was below 89% and she was placed on 4L NC O2 initially and then was up to 10 L O2 when I saw her with a lot of rhonchi and wheezing, quite hypertensive and mildly tachycardic. A CXR was negative for pneumonia and a procalcitonin was negative. She was given a dose of IV Decadron and an albuterol nebulizer. I then ordered a CT angiogram of the chest which showed moderate airway thickening and mucous plugging in the lower lobes with mild atelectasis, but no PE. She is admitted for COVID-19 with acute bronchitis versus developing pneumonia, with acute respiratory failure with hypoxemia. #COVID-19/acute respiratory failure with hypoxemia/acute bronchitis-no evidence of pneumonia on CXR but with bronchitis and mucous plugging with atelectasis on CTA chest. No history of chronic lung disease. Procalcitonin is negative making bacterial superinfection not likely, however with copious sputum being produced as per staff. Still remains on high flow nasal cannula at 50 L at 80% FiO2 but not tachypneic - Continued stay on medical floor telemetry - Continue remdesivir, completed 3 of 5, doses at 7 PM. Last dose will tentatively be 11/14 at 7 PM patient is 345 to 7 days 30 to 47 days out of 10 7 Saturday [id number] - Continue dexamethasone 6 mg IV once daily - Continue supplemental O2 to keep pulse ox greater than 90%-remains on high flow nasal cannula, stable oxygen needs overnight - Pulmonary toilet, bronchodilators scheduled 4 times daily, flutter valve - Add guaifenesin DM 10 mL p.o. 3 times daily scheduled for productive cough - Add ceftriaxone and azithromycin to cover for secondary bacterial pneumonia - Clinically improving. Substantial decrease oxygen need. #Acute metabolic encephalopathy/dementia/depression-encephalopathy secondary to hypoxemia, COVID-19 in the setting of severe dementia. She is consistently try ing to pull off her oxygen and causing severely low oxygen levels. She is now in limb restraints -Continue soft limb restraint and/or cloth mitts to keep her from pulling off her oxygen - Hydroxyzine as needed for agitation ordered from home - Continue home duloxetine - Supportive care, improving. Closer to her baseline today. Appropriate and interactive during my visit -Continue treating COVID-19 and giving supplemental O2 #Elevated blood pressures without a diagnosis of HTN-blood pressure is significantly elevated on arrival secondary to IV steroids, anxiety. She is not on home antihypertensives. BPs now normal - IV hydralazine as needed - Monitor BPs, modest elevation, no intervention required at this time #Chronic pain/neuropathy-no acute issues - Continue home gabapentin 900 mg p.o. 3 times daily - Tylenol as needed for pain #Glaucoma/blindness/OS enucleation-no acute issues - Continue home eyedrops for right eye #Hypothyroidism-no acute issues, TSH normal - Continue home levothyroxine, liothyronine DVT prophylaxis-Lovenox SQ, SCDs Disposition-continued stay on medical floor with telemetry. Discussed care with her POA on the phone on the day of admission. I was not able to get in touch with her but the POA reports that the has Parkinson's disease and what sounds like some developing dementia. Her POA Priya has been her best friend for 45 years. She reports that the patient has always said she wanted to be a DNR DNI and did not want any artificial feeds etc. The POLST form that came with [facility] says the complete opposite-this form says she is a full code and wants everything done. Her POA says that this is absolutely not true and wants her to be a DNR DNI and she will address the POLST form with Haley lofton. We can also change the POLST form prior to discharge from the hospital. Admission and Anticipated Discharge Date Admission Date: November 10, 2025 Subjective Doing well. Substantial decrease in oxygen needs overnight now on 4 L by nasal cannula. Tolerating that well. Feels as though her breathing is quite a bit be tter. Eating and drinking okay with the assistance of staff. No new events or concerns per patient. Physical Exam Constitutional: WD/WN, vitals as above Neck: trachea midline, no thyromegaly Respiratory: no respiratory distress Auscultation: + rhonchi (Bilateral lower lung adhikari); no crackles and no wheezes Cardiovascular: Rate/Rhythm: regular rhythm Heart Sounds: no murmur Extremities: no edema Chest (Breasts): Chest: normal inspection of chest Gastrointestinal (Abdomen): normal bowel sounds, soft, nontender, no hepatosplenomegaly Musculoskeletal: Extremities: extremities normal to inspection; no cyanosis and no clubbing Skin: no rashes, warm and dry Neurologic: moves all extremities and awake; no focal motor deficits Psychiatric: Orientation: alert, oriented to person and cooperative; + not oriented to place and + not oriented to time Lymphatic: no lymphedema Results & Data Results & Data Vital Signs (Past 12 Hours) Vital Signs Temp Pulse Pulse Resp BP BP Pulse Ox 11/13/25 14:30 79 11/13/25 13:42 92 11/13/25 13:00 81 L 11/13/25 12:06 36.5 C 81 20 127/74 91 11/13/25 11:36 11/13/25 10:49 85 17 92 11/13/25 08:33 36.5 C 77 18 158/77 H 94 11/13/25 08:00 74 11/13/25 07:36 82 17 92 O2 Del Method O2 Flow Rate FiO2 11/13/25 14:30 11/13/25 13:42 Nasal Cannula 3 11/13/25 13:00 Room Air 11/13/25 12:06 Nasal Cannula 3 11/13/25 11:36 Nasal Cannula 5 11/13/25 10:49 Nasal Cannula 5 11/13/25 08:33 High Flow Nasal Cannula 11/13/25 08:00 11/13/25 07:36 High Flow Nasal Cannula 40 40 Laboratory Results 11/10/25 11:50 Aerobic Blood Culture - Preliminary Blood No growth in Aerobic bottle after 48 hours. Anaerobic Blood Culture - Preliminary No growth in Anaerobic bottle after 48 hours. 11/10/25 11:53 Aerobic Blood Culture - Preliminary Blood No growth in Aerobic bottle after 48 hours. Anaerobic Blood Culture - Preliminary No growth in Anaerobic bottle after 48 hours. 11/13/25 07:27 WBC 13.42 H RBC 4.50 Hgb 13.4 Hct 39.7 MCV 88.2 MCH 29.8 MCHC 33.8 RDW Std Deviation 43.2 RDW Coeff of Ronald 13.3 Plt Count 314 MPV 10.2 Immature Gran % (Auto) 0.5 Neut % (Auto) 81.7 Lymph % (Auto) 11.7 [place] % (Auto) 6.0 Eos % (Auto) 0.0 Baso % (Auto) 0.1 Neut # (Auto) 10.97 H Lymph # (Auto) 1.57 [place] # (Auto) 0.80 H Eos # (Auto) 0.00 Baso # (Auto) 0.01 Immature Gran # (Auto) 0.07 Sodium 142 Potassium 4.0 Chloride 106 Carbon Dioxide 29 Anion Gap 7 BUN 40 H D Creatinine 0.65 D Est Cr Clr Drug Dosing 56.4 eGFR 90.06 BUN/Creatinine Ratio 61.5 H Glucose 106 H Calcium 9.2 Magnesium 2.4 Total Bilirubin 0.5 AST 28 ALT 14 Alkaline Phosphatase 64 C-Reactive Protein 6.39 H Total Protein 6.3 Albumin 3.4 Globulin 2.9 Albumin/Globulin Ratio 1.2 Procalcitonin 3.41 H PG Care Time/CCT Total # of Minutes Spent Total Time Spent with Patient: Total time spent is greater than 50% in coordination of care (as documented) at patient's floor/unit and/or counseling patient: Coding Level of Care Code 99386 SUB INP/OBS CARE 235MIN Diagnoses COVID-19 U07.1 Acute respiratory failure with hypoxia J96.01 Depression with anxiety F41.8 Dementia F03.B0 Dementia behavioral or psychological symptom: unspecified whether behavioral, psychotic, or mood disturbance or anxiety Dementia severity: moderate Dementia type: unspecified type (4) Dementia Dementia behavioral or psychological symptom: unspecified whether behavioral, psychotic, or mood disturbance or anxiety Dementia severity: moderate Dementia type: unspecified type Qualified Code(s): F03.B0 - Unspecified dementia, moderate, without behavioral disturbance, psychotic disturbance, mood disturbance, and anxiety
[2025-11-14 07:45] LABS: Hematocrit (blood only) 38.5 % (37.0-47.0); Hemoglobin 13.1 g/dL (12.0-16.0); Immature Granulocytes # (auto) 0.05 K/uL (0.01-0.20); Immature Granulocytes % (auto) 0.5 %; Mean Corpuscular Hemoglobin 30.4 pg (25.0-34.0); Mean Corpuscular Volume 89.3 fL (80.0-100.0); Platelet Count 341 K/uL (130-400); RDW Standard Deviation 42.8 fL (36.4-46.3); Red Blood Count 4.31 M/uL (4.20-5.40); White Blood Count 10.27 K/ul (4.8-10.8)
[2025-11-14 08:03] LABS: Alanine Aminotransferase 13.0 U/L (7-52); Albumin Globulin Ratio 1.2 (0.9-2); Albumin Level 3.3 gm/dl (3.4-5.0); Alkaline Phosphatase 63.0 U/L (34-104); Anion Gap 6.0 (3-11); Bilirubin,Total 0.5 mg/dl (0.2-1.0); Blood Urea Nitrogen 37.0 mg/dl (6-23); Calcium 9.5 mg/dl (8.6-10.3); Carbon Dioxide 30.0 mmol/L (21-32); Chloride 106.0 mmol/L (98-107); Creatinine Clr Calc Pharmacy 57.3 ml/min; Globulin 2.7 gm/dl (2.5-4.0); Glucose 99.0 mg/dl (70-99(Fasting)); Magnesium 2.4 mg/dl (1.7-2.4); Potassium 4.1 mmol/L (3.5-5.1); Sodium 142.0 mmol/L (136-145); Total Protein 6.0 gm/dl (6.0-8.3)
[2025-11-14] MEDS ORDERED: ALBUT/IPRATROP 3MG/0.5MG NEB 3 ML VIAL NEB PRN (10:54)
--- NOTE | 2025-11-14 17:07 | Hospitalist Progress Note ---
Date of Service November 14, 2025 Assessment & Plan (1) COVID-19: (2) Acute respiratory failure with hypoxia: (3) Depression with anxiety: (4) Dementia: Plan This patient is a 80-year-old female with a history of dementia, depression, glaucoma, chronic pain, hypothyroidism, neuropathy, who resides at a personal- [facility], who presented to the ED with significant respiratory distress, cough, shortness of breath worsening through the day. She lives in a personal care facility that has significant COVID burden at this time. Her COVID-19 test in the ED was positive. Her pulse ox was below 89% and she was placed on 4L NC O2 initially and then was up to 10 L O2 when I saw her with a lot of rhonchi and wheezing, quite hypertensive and mildly tachycardic. A CXR was negative for pneumonia and a procalcitonin was negative. She was given a dose of IV Decadron and an albuterol nebulizer. I then ordered a CT angiogram of the chest which showed moderate airway thickening and mucous plugging in the lower lobes with mild atelectasis, but no PE. She is admitted for COVID-19 with acute bronchitis versus developing pneumonia, with acute respiratory failure with hypoxemia. #COVID-19/acute respiratory failure with hypoxemia/acute bronchitis-no evidence of pneumonia on CXR but with bronchitis and mucous plugging with atelectasis on CTA chest. No history of chronic lung disease. Procalcitonin is negative making bacterial superinfection not likely, however with copious sputum being produced as per staff. Still remains on high flow nasal cannula at 50 L at 80% FiO2 but not tachypneic - Continued stay on medical floor telemetry - Continue remdesivir, completed 4 of 5, doses at 7 PM. Last dose will tentatively be 11/14 at 7 PM - decrease dexamethasone to 4 mg PO once daily, continue for 3-5 additional days - Continue supplemental O2 to keep pulse ox greater than 90%-remains on high flow nasal cannula, stable oxygen needs overnight - Pulmonary toilet, bronchodilators scheduled 4 times daily, flutter valve - Add guaifenesin DM 10 mL p.o. 3 times daily scheduled for productive cough - Add ceftriaxone and azithromycin to cover for secondary bacterial pneumonia, CRP and Pro-Max are downtrending nicely. Complete full course of azithromycin, consider 7-day course of total treatment with Omnicef on discharge - Clinically improving. Intermittently on room air this afternoon, continue to monitor through 1 more overnight, #Acute metabolic encephalopathy/dementia/depression-encephalopathy secondary to hypoxemia, COVID-19 in the setting of severe dementia. She is consistently trying to pull off her oxygen and causing severely low oxygen levels. She is now in limb restraints -Continue soft limb restraint and/or cloth mitts to keep her from pulling off her oxygen - Hydroxyzine as needed for agitation ordered from home - Continue home duloxetine - Supportive care, improving. Closer to her baseline today. Appropriate and interactive during my visit -Continue treating COVID-19 and giving supplemental O2 - Back to baseline, nursing and to check with memory care for return criteria #Elevated blood pressures without a diagnosis of HTN-blood pressure is significantly elevated on arrival secondary to IV steroids, anxiety. She is not on home antihypertensives. BPs now normal - IV hydralazine as needed - Monitor BPs, modest elevation, no intervention required at this time #Chronic pain/neuropathy-no acute issues - Continue home gabapentin 900 mg p.o. 3 times daily - Tylenol as needed for pain #Glaucoma/blindness/OS enucleation-no acute issues - Continue home eyedrops for right eye #Hypothyroidism-no acute issues, TSH normal - Continue home levothyroxine, liothyronine DVT prophylaxis-Lovenox SQ, SCDs Disposition-continued stay on medical floor with telemetry. Discussed care with her POA on the phone on the day of admission. I was not able to get in touch with her but the POA reports that the has Parkinson's disease and what sounds like some developing dementia. Her POA Priya has been her best friend for 45 years. She reports that the patient has always said she wanted to be a DNR DNI and did not want any artificial feeds etc. The POLST form that came with her from the halfway says the complete opposite-this form says she is a full code and wants everything done. Her POA says that this is absolutely not true and wants her to be a DNR DNI and she will address the POLST form with Haley lofton. We can also change the POLST form prior to discharge from the hospital. Admission and Anticipated Discharge Date Admission Date: November 10, 2025 Subjective Doing better this morning. States her breathing is much improved. Eating with assistance with staff. She has been quite aggressive with staff members at times but has been increasingly redirectable. We have had a continued positive titration of her oxygen and only on minimal room air to 3 L at this time. Otherwise she has 1 additional day of the remdesivir. No other new complaints or concerns. Antibiotics ongoing. Tolerating well Physical Exam Constitutional: WD/WN, vitals as above Neck: trachea midline, no thyromegaly Respiratory: no respiratory distress Auscultation: + rhonchi (Bilateral lower lung adhikari); no crackles and no wheezes Cardiovascular: Rate/Rhythm: regular rhythm Heart Sounds: no murmur Extremities: no edema Chest (Breasts): Chest: normal inspection of chest Gastrointestinal (Abdomen): normal bowel sounds, soft, nontender, no hepatosplenomegaly Musculoskeletal: Extremities: extremities normal to inspection; no cyanosis and no clubbing Skin: no rashes, warm and dry Neurologic: moves all extremities and awake; no focal motor deficits Psychiatric: Orientation: alert, oriented to person and cooperative; + not oriented to place and + not oriented to time Lymphatic: no lymphedema Results & Data Results & Data Vital Signs (Past 12 Hours) Vital Signs Temp Pulse Pulse Resp BP Pulse Ox O2 Del Method 11/14/25 16:00 77 11/14/25 11:33 36.9 C 70 18 136/73 92 Room Air 11/14/25 11:09 94 Nasal Cannula 11/14/25 10:57 Nasal Cannula 11/14/25 08:00 77 11/14/25 07:35 36.3 C L 69 16 140/75 95 Nasal Cannula 11/14/25 07:12 91 H 20 94 Nasal Cannula O2 Flow Rate 11/14/25 16:00 11/14/25 11:33 11/14/25 11:09 2 11/14/25 10:57 2 11/14/25 08:00 11/14/25 07:35 3 11/14/25 07:12 3 Laboratory Results 11/14/25 06:51 WBC 10.27 RBC 4.31 Hgb 13.1 Hct 38.5 MCV 89.3 MCH 30.4 MCHC 34.0 RDW Std Deviation 42.8 RDW Coeff of Ronald 13.0 Plt Count 341 MPV 10.6 Immature Gran % (Auto) 0.5 Neut % (Auto) 76.5 Lymph % (Auto) 16.4 [place] % (Auto) 6.4 Eos % (Auto) 0.1 Baso % (Auto) 0.1 Neut # (Auto) 7.86 H Lymph # (Auto) 1.68 [place] # (Auto) 0.66 H Eos # (Auto) 0.01 Baso # (Auto) 0.01 Immature Gran # (Auto) 0.05 Sodium 142 Potassium 4.1 Chloride 106 Carbon Dioxide 30 Anion Gap 6 BUN 37 H Creatinine 0.64 Est Cr Clr Drug Dosing 57.3 eGFR 90.40 BUN/Creatinine Ratio 57.8 H Glucose 99 Calcium 9.5 Magnesium 2.4 Total Bilirubin 0.5 AST 18 ALT 13 Alkaline Phosphatase 63 C-Reactive Protein 2.52 H Total Protein 6.0 Albumin 3.3 L Globulin 2.7 Albumin/Globulin Ratio 1.2 PG Care Time/CCT Total # of Minutes Spent Total Time Spent with Patient: Total time spent is greater than 50% in coordination of care (as documented) at patient's floor/unit and/or counseling patient: Coding Level of Care Code 08691 SUB INP/OBS CARE 2/35MIN Diagnoses COVID-19 U07.1 Acute respiratory failure with hypoxia J96.01 Depression with anxiety F41.8 Dementia F03.B0 Dementia behavioral or psychological symptom: unspecified whether behavio ral, psychotic, or mood disturbance or anxiety Dementia severity: moderate Dementia type: unspecified type (4) Dementia Dementia behavioral or psychological symptom: unspecified whether behavioral, psychotic, or mood disturbance or anxiety Dementia severity: moderate Dementia type: unspecified type Qualified Code(s): F03.B0 - Unspecified dementia, moderate, without behavioral disturbance, psychotic disturbance, mood disturbance, and anxiety
[2025-11-14 21:49] VITALS: RESP 20
--- NOTE | 2025-11-15 11:34 | Discharge Summary ---
Date of Service November 15, 2025 Admission HPI Per Admitting Provider This patient is a 80-year-old female with a history of dementia, depression, glaucoma, chronic pain, hypothyroidism, neuropathy, who resides at a personal- senior care, who presented to the ED with significant respiratory distress, cough, shortness of breath worsening through the day. She lives in a personal care facility that has significant COVID burden at this time. The personal-[facility] care reported to the ED physician via EMS that she had been sick several weeks ago, however her best friend and POA whom I spoke with on the phone said that the patient has not been sick at all. In fact, she visited with her 2 days ago and the patient was doing very well. Her COVID-19 test in the ED was positive. Her pulse ox was below 89% and she was placed on 4L NC O2 initially and then was up to 10 L O2 when I saw her with a lot of rhonchi and wheezing. She was quite hypertensive and mildly tachycardic. The patient was unable to give me any meaningful information except that she denied pain except for a mild headache. A CXR was negative for pneumonia and a procalcitonin was negative. She was given a dose of IV Decadron and an albuterol nebulizer. I then ordered a CT angiogram of the chest which showed moderate airway thickening and mucous plugging in the lower lobes with mild atelectasis, but no PE. She will be admitted for COVID-19 with acute respiratory failure with hypoxemia. Admission Exam (Per Admitting) Constitutional The patient is awake, alert and confused HEENT--PERRL, EOMI, mucous membranes and oropharynx mildly dry Neck--supple. No JVD. No bruits. Thyroid normal, trachea midline, no adenopathy. Heart--normal S1 and S2. No murmurs, rubs or gallops. Lungs--clear bilaterally, no respiratory distress, no accessory muscle use. Abdomen--normal bowel sounds and soft. Extremities--no cyanosis or clubbing. No edema. Dermatologic--normal skin turgor, normal color, no abnormal lymph nodes, no rash. Neurologic--cranial nerves II through XII grossly intact. Rheumatologic--normal range of motion. Psychiatric--normal affect. Discharge Data Consultations 11/10/25 13:08 ED Decision to Admit Stat Hospital Course (1) COVID-19: (2) Acute respiratory failure with hypoxia: (3) Depression with anxiety: (4) Dementia: Plan This patient is a 80-year-old female with a history of dementia, depression, glaucoma, chronic pain, hypothyroidism, neuropathy, who resides at a personal- senior care, who presented to the ED with significant respiratory distress, cough, shortness of breath worsening through the day. She lives in a personal care facility that has significant COVID burden at this time. Her COVID-19 test in the ED was positive. Her pulse ox was below 89% and she was placed on 4L NC O2 initially and then was up to 10 L O2 when I saw her with a lot of rhonchi and wheezing, quite hypertensive and mildly tachycardic. A CXR was negative for pneumonia and a procalcitonin was negative. She was given a dose of IV Decadron and an albuterol nebulizer. I then ordered a CT angiogram of the chest which showed moderate airway thickening and mucous plugging in the lower lobes with mild atelectasis, but no PE. She is admitted for COVID-19 with acute bronchitis versus developing pneumonia, with acute respiratory failure with hypoxemia. #COVID-19/acute respiratory failure with hypoxemia/acute bronchitis-no evidence of pneumonia on CXR but with bronchitis and mucous plugging with atelectasis on CTA chest. No history of chronic lung disease. Completed a course of IV remdisivir Clinically much improved Currently on room air Will discontinue decadron Discharge back to her H #Acute metabolic encephalopathy/dementia/depression-encephalopathy secondary to hypoxemia, COVID-19 in the setting of severe dementia. She is consistently trying to pull off her oxygen and causing severely low oxygen levels. She is now in limb restraints -Continue soft limb restraint and/or cloth mitts to keep her from pulling off her oxygen - Hydroxyzine as needed for agitation ordered from home - Continue home duloxetine - Supportive care, improving. Closer to her baseline today. Appropriate and interactive during my visit -Continue treating COVID-19 and giving supplemental O2 - Back to baseline, nursing and to check with memory care for return criteria #Elevated blood pressures without a diagnosis of HTN-blood pressure is significantly elevated on arrival secondary to IV steroids, anxiety. She is not on home antihypertensives. BPs now normal - IV hydralazine as needed - Monitor BPs, modest elevation, no intervention required at this time #Chronic pain/neuropathy-no acute issues - Continue home gabapentin 900 mg p.o. 3 times daily - Tylenol as needed for pain #Glaucoma/blindness/OS enucleation-no acute issues - Continue home eyedrops for right eye #Hypothyroidism-no acute issues, TSH normal - Continue home levothyroxine, liothyronine DVT prophylaxis-Lovenox SQ, SCDs Disposition-continued stay on medical floor with telemetry. Discussed care with her POA on the phone on the day of admission. I was not able to get in touch with her but the POA reports that the has Parkinson's disease and what sounds like some developing dementia. Her POA Priya has been her best friend for 45 years. She reports that the patient has always said she wanted to be a DNR DNI and did not want any artificial feeds etc. The POLST form that came with her from the retirement says the complete opposite-this form says she is a full code and wants everything done. Her POA says that this is absolutely not true and wants her to be a DNR DNI and she will address the POLST form with Haley lofton. We can also change the POLST form prior to discharge from the hospital. Coding Level of Care Code 18162 INP/OBS DISCH >30 MIN Diagnoses COVID-19 U07.1 Acute respiratory failure with hypoxia J96.01 Depression with anxiety F41.8 Dementia F03.B0 Dementia behavioral or psychological symptom: unspecified whether behavioral, psychotic, or mood disturbance or anxiety Dementia severity: moderate Dementia type: unspecified type Time Spent (min) 35
[2025-11-15 13:00] VITALS: BP 121/71; PULSE 65; TEMP 98.2; O2SAT 95
== END 2025-11-15 15:19 | disposition home or self-care (01) | DRG 177 ==
LOC: SUATTDRO → ED 11:27 → SUATTDRO 14:25 → EDINP 14:25 → 2W 17:08